=== PATIENT | male | born 1940 | race Caucasian/White ===

== ENCOUNTER → 2017-07-07 13:06 | Outpatient (CLI) | payer MEDICARE, SELFPAY ==
--- NOTE | 2017-07-07 13:09 | RAD_ITS ---
STUDY: X-RAY CHEST REASON FOR EXAM: Male, 77 years old. Crackles in the bilateral lower lobes. TECHNIQUE: 2 views COMPARISON: Prior chest radiograph of January 10, 2017 FINDINGS: Lung lucio remain moderately well expanded without consolidation or focal atelectasis. Negative for advanced interstitial changes. Negative for pleural effusion. Normal size heart. Normal mediastinum and fredrick. Normal visualized pulmonary arteries. There is atherosclerotic calcification of the aortic arch . Normal visualized thoracic spine. Normal visualized ribs, clavicles, and shoulders. There is no demonstrated abnormality of the visualized soft tissue structures of the upper abdomen. RAD/Chest PA and Lateral IMPRESSION: No acute cardiopulmonary findings or changes. Negative for infiltrates, consolidation, atelectasis or pleural effusion. Normal cardiac size without evidence of pulmonary venous congestion. Electronically Signed: Sylvia Navarrete MD at 21:48 EDT , Service support ,
== END ==
PROVIDERS: Family Provider Internal Medicine; PCP Internal Medicine; Visit Provider Internal Medicine
DX: R05 Cough (principal)
CPT/HCPCS: 71046

== ENCOUNTER → 2017-07-20 07:12 | Outpatient (CLI) | payer MEDICARE, SELFPAY ==
--- NOTE | 2017-07-20 07:16 | CT_ITS ---
STUDY: CT CHEST WITH CONTRAST REASON FOR EXAM: Male, 77 years old. Abnormal lung sounds RADIATION DOSAGE (If Supplied By Facility): CTDIvol = ( 13.8 ) mGy, DLP = ( 453.58 ) mGycm TECHNIQUE: Transaxial imaging was performed following intravenous administration of 100 ml of Isovue 300 contrast material. Coronal and sagittal reformatted images were created. Individualized dose optimization techniques were used for this CT. COMPARISON: None FINDINGS: There are no pulmonary infiltrates or pleural effusions. There is atelectasis at the lung bases. There are no significant congestive changes. There is no pneumothorax. The heart and pericardium are within normal limits. There is no thoracic lymphadenopathy. There is no evidence of thoracic aortic aneurysm. Images through the upper abdomen demonstrate no significant abnormality. There are no destructive osseous lesions. CT/Chest WITH Contrast IMPRESSION: Bibasilar atelectasis. Otherwise, clear lungs. Electronically Signed: Vitor Munroe, at 16:54 EDT Tel , Service support ,
[2017-07-20 07:30] LABS: EGFR FINGERSTICK > 60.0000 mL/min (>60)
== END ==
PROVIDERS: Family Provider Internal Medicine; PCP Internal Medicine; Visit Provider Internal Medicine
DX: R09.89 Other specified symptoms and signs involving the circulatory and respiratory systems (principal)
CPT/HCPCS: 71260; Q9967

== ENCOUNTER → 2017-09-12 14:01 | Outpatient (CLI) | payer MEDICARE, SELFPAY ==
[2017-09-12 16:39] LABS: Absolute Neutrophil Count 2.8 X10^3/uL (2.0-7.7); Basophil# 0.04 X10^3/uL; Basophil% 0.8 % (0-1); Eosinophil# 0.16 X10^3/uL; Eosinophils% 3.2 % (0-5); Hematocrit 42.2 % (40-54); Hemoglobin 13.5 g/dl (13.0-16.5); Lymphocyte % 27.9 % (19-41); Mean Corpuscular Hgb 31.2 pg (27.0-32.0); Mean Corpuscular Volume 97.5 fL (80-94); Monocyte# 0.62 X10^3/uL; Monocyte% 12.4 % (0-10); Neutrophil # 2.78 X10^3/uL (2.7-7.7); Neutrophil % 55.5 % (47-70); Platelet Count 139 K/mm3 (150-450); RBC Distribution Width CV 13.9 % (11.6-14.6); RBC Distribution Width SD 50.5 fl (35.1-43.9); Red Blood Count 4.33 M/mm3 (4.6-6.2)
[2017-09-12 16:55] LABS: POSITIVE COUNT NO; POSITIVE DIFFERENTIAL NO; POSITIVE MORPHOLOGY NO
[2017-09-12 17:07] LABS: AST(SGOT) 45 U/L (15-37); Alanine Aminotransfer ALT/SGPT 71 U/L (16-61); Albumin, Serum 3.6 g/dL (3.2-5.0); Alkaline Phosphatase 106 U/L (45-117); Anion Gap 9 (5-15); BUN 30 mg/dL (7-18); BUN/Creat Ratio 22.9 RATIO (10-20); Calcium,Total 8.9 mg/dL (8.5-10.1); Chloride 107 mmol/L (98-107); Creatinine, Serum 1.31 mg/dL (0.70-1.30); EST Glomerular Filtration Rate 56 mL/min (>60); Est Glom Filt Rate - Afr Amer 68 mL/min (>60); Globulin 3.6 g/dL (2.2-4.2); Glucose 92 mg/dL (74-106); Potassium 4.6 mmol/L (3.5-5.1); Protein, Total 7.2 g/dL (6.4-8.2); Sodium Level 143 mmol/L (136-145)
[2017-09-15 16:10] LABS: Immunoglobulin A 558 mg/dL (61-437); Immunoglobulin G 617 mg/dL (700-1600); PROEL- A/G Ratio 1.3 (0.7-1.7); PROEL- Albumin 3.7 g/dL (2.9-4.4); PROEL- Alpha-1 Globulin 0.2 g/dL (0.0-0.4); PROEL- Alpha-2 Globulin 0.7 g/dL (0.4-1.0); PROEL- Beta Globulin 0.7 g/dL (0.7-1.3); PROEL- Gamma Globulin 1.2 g/dL (0.4-1.8); PROEL- Globulin, Total 2.9 g/dL (2.2-3.9); PROEL- TOTAL PROTEIN 6.6 g/dL (6.0-8.5)
[2017-09-16 13:13] LABS: Immunoglobulin M 41 mg/dL (15-143)
== END ==
PROVIDERS: Internal Medicine Medical Oncology; Family Provider Internal Medicine; PCP Internal Medicine; Visit Provider Urology
DX: D47.2 Monoclonal gammopathy (principal)
CPT/HCPCS: 36415; 80053; 82784; 84165; 85025

== ENCOUNTER → 2017-12-22 12:32 | Outpatient (CLI) | payer MEDICARE, SELFPAY ==
--- NOTE | 2017-12-22 12:36 | CT_ITS ---
STUDY: CARDIAC CALCIUM SCORING - CT CHEST REASON FOR EXAM: Male, 77 years old. Cardiac calcium score. RADIATION DOSAGE (If Supplied By Facility): CTDIvol = ( 12.19 ) mGy, DLP = ( 219.42 ) mGycm TECHNIQUE: Axial non-enhanced images were acquired through the heart for the sole purpose of measuring coronary artery calcium. Individualized dose optimization techniques were used for this CT. COMPARISON: CT of the chest dated July 20, 2017. FINDINGS: Visualized surrounding anatomy: There is left basilar dependent atelectasis. The lungs otherwise appear to be clear. The trachea has a normal appearance. The thoracic aorta is tortuous with maximum transverse dimension of the ascending thoracic aorta measuring 3.2 cm. Visualized liver and spleen have a grossly normal appearance. Left Main Coronary Artery: 0 Left Anterior Descending Artery: 151 Left Circumflex Artery: 235 Right Coronary Artery: 1250 Total Calcium Score: 1636. Percentile is between [address]% CT/Limited Chest CT w/CCTA IMPRESSION: A Calcium Score of 1636 places the patient in the approximate 75-90 percentile, based on the HOY[facility] data calculator. Please go to: [email or web address] , for a description of the calculator. Electronically Signed: Belgica Garcia MD at 5:48 EDT , Service support ,
[2017-12-22 12:44] VITALS: BP 131/63; PULSE 53; RESP 14; O2SAT 97; BMI 25.0
--- NOTE | 2017-12-22 20:12 | CA.SCORE ---
Calcium Scoring Date of Study:: 12/22/17 Coronary Calcium Scoring: Coronary calcium score: 1636 Conclusion: Coronary calcium score: 1636 Results: The patient underwent high resolution CT imaging of the chest on 12/22/2017 with particular attention to the coronary arteries. The images were analyzed for the presence and extent of coronary artery calcification using coronary calcium quantification software. The patient was reported as tolerating the procedure well with no adverse events. The coronary calcium score was reported at 1636, which, based upon pre-published reference tables, being a coronary calcium score greater than 400, would be interpreted as having an extensive plaque burden and the high likelihood of at least one significant coronary artery stenosis of greater than 50% in diameter. Impression: Coronary calcium score: 1636 This note was generated with [employer] dictation software. It may contain incorrect words, spelling, and punctuation that were not noted in checking the note before signing.
--- NOTE | 2017-12-22 20:15 | CCTA_ITS ---
Calcium Scoring Date of Study:: 12/22/17 Coronary Calcium Scoring: Coronary calcium score: 1636 Conclusion: Coronary calcium score: 1636 Results: The patient underwent high resolution CT imaging of the chest on 12/22/2017 with particular attention to the coronary arteries. The images were analyzed for the presence and extent of coronary artery calcification using coronary calcium quantification software. The patient was reported as tolerating the procedure well with no adverse events. The coronary calcium score was reported at 1636, which, based upon pre-published reference tables, being a coronary calcium score greater than 400, would be interpreted as having an extensive plaque burden and the high likelihood of at least one significant coronary artery stenosis of greater than 50% in diameter. Impression: Coronary calcium score: 1636 This note was generated with [employer] dictation software. It may contain incorrect words, spelling, and punctuation that were not noted in checking the note before signing.
== END ==
PROVIDERS: Family Provider Internal Medicine; PCP Internal Medicine; Referring Provider Internal Medicine; Visit Provider Internal Medicine
DX: E11.9 Type 2 diabetes mellitus without complications (principal); E78.00 Pure hypercholesterolemia, unspecified; I25.10 Atherosclerotic heart disease of native coronary artery without angina pectoris
CPT/HCPCS: 75571; 76380

== ENCOUNTER → 2018-01-23 05:57 | Outpatient (CLI) | payer MEDICARE, SELFPAY ==
--- NOTE | 2018-01-23 06:00 | ECHOD_ITS ---
Reason For Study: CAD/ASHD Procedure This was a 2D Doppler, Color Flow transthoracic echocardiogram. Exam performed in department. Left Ventricle Normal LV size. Left ventricular systolic function is normal. The estimated ejection fraction is 65 %. Stage 1 diastolic dysfunction. No regional wall motion abnormalities noted. Right Ventricle Normal RV size. Normal systolic function. Atria Normal left atrium. Normal right atrium. Mitral Valve Chordal systolic anterior motion of the mitral valve. Mild (1+) eccentric mitral valve insufficiency. Tricuspid Valve Normal tricuspid valve. Mild (1+) tricuspid valve insufficiency. Pulmonary artery systolic pressure is 24 mmHg. Aortic Valve Normal aortic valve. Trisinus/trileaflet aortic valve. Pulmonic Valve Normal pulmonic valve. Great Vessels Normal aortic root. The pulmonary artery is normal size. Normal inferior vena cava. Pericardium/Pleural No pericardial effusion. Medication 22 gauge I.V. with prn adaptor inserted into right arm. Performed a rapid injection of agitated mix of 9 cc saline and 1cc air to assess for atrial septal defect. MMode/2D Measurements & Calculations LVIDd: 3.6 cm IVSd: 1.1 cm Ao root diam: 3.0 cm LVIDs: 2.1 cm LVPWd: 1.2 cm LA dimension: 3.3 cm RVDd: 3.2 cm FS: 42.0 % LAV(MOD-bp): 33.0 ml LA A4 area: 14.2 cm2 RA A4 area: 12.8 cm2 LAV(MOD-bp) Indexed: 18.6 ml/m2 LAV(MOD-sp2): 32.5 ml LAV(MOD-sp4): 32.6 ml Time Measurements MV dec time: 0.23 sec Doppler Measurements & Calculations MV E max ap: 87.4 cm/sec Lat Peak E' Ap: 11.7 cm/sec Med Peak E' Ap: 8.9 cm/sec MV A max ap: 116.5 cm/sec E/E' lat: 7.5 E/E' med: 9.8 MV E/A: 0.75 MV V2 max: 125.2 cm/sec MV P1/2t max ap: 92.5 cm/sec Ao V2 max: 115.2 cm/sec MV max P.3 mmHg MV P1/2t: 106.9 msec Ao max P.3 mmHg MV V2 mean: 65.0 cm/sec MV dec slope: 253.4 cm/sec2 Ao V2 mean: 73.4 cm/sec MV mean P.0 mmHg MVA(P1/2t): 2.1 cm2 Ao mean P.5 mmHg MV V2 VTI: 32.9 cm Ao V2 VTI: 23.2 cm AI max ap: 364.3 cm/sec LV V1 max: 94.6 cm/sec PA V2 max: 119.4 cm/sec AI max P.1 mmHg LV V1 max P.6 mmHg AI dec slope: 211.8 cm/sec2 LV V1 mean P.5 mmHg AI P1/2t: 503.9 msec LV V1 mean: 56.6 cm/sec LV V1 VTI: 19.7 cm TR max ap: 228.6 cm/sec TR max P.9 mmHg Interpretation Summary Normal LV size. Left ventricular systolic function is normal. The estimated ejection fraction is 65 %. Stage 1 diastolic dysfunction. Mild (1+) eccentric mitral valve insufficiency. Chordal systolic anterior motion of the mitral valve. Mild (1+) tricuspid valve insufficiency. Pulmonary artery systolic pressure is 24 mmHg. Ordering Physician: Wallace James Referring Physician: Misa Almonte M.D. Performed By: Reese Olson RCS
--- NOTE | 2018-01-23 11:42 | STRESSREP_ITS ---
Stress Test Report Exercise myocardial perfusion stress test. 77-year-old man with a history of coronary artery disease. Stress protocol: Resting EKG demonstrates normal sinus rhythm with a rate of 78 beats minute normal intervals and noted resting blood pressure 150/82 mmHg. The patient exercised according to regular [facility] protocol for total duration of 6 minutes and 30 seconds the maximum heart rate attained was 141 bpm which was 99% of maximum predicted heart rate. The maximum workload attained was 7.7 metabolic equivalents. At rest there were no ST or T wave changes noted suggest ischemia peak exercise upsloping ST changes were noted with no meet the criteria for ischemia. No clinical angina was noted the test was terminated due to leg fat igue. The resting blood pressure 150/82 mmHg with a peak blood pressure 184/80 mmHg. Myocardial perfusion protocol. 11.6 mCi of technetium 99m sestamibi was injected at rest. The patient exercised according to regular [facility] protocol for 6-1/2 minutes attaining 99% of maximum predicted heart rate. At peak exercise 33.9 mCi of technetium 99m sestamibi was injected stress images were obtained stress and rest images were reconstructed and compared in the short axis vertical long horizontal long axis. Gated images were also obtained for next Perfusion SPECT analysis: Review of the stress images demonstrate normal uptake of tracer noted in all areas of the myocardium. The resting images similarly demonstrate normal uptake of tracer noted in all areas of the myocardium. No evidence of ischemia is noted no previous infarct is noted. Gated SPECT analysis: The gated ejection fraction is noted to be 70%. Conclusion: Normal exercise myocardial perfusion stress test. Preserved ejection fraction.
== END ==
PROVIDERS: Family Provider Internal Medicine; PCP Internal Medicine; Referring Provider Internal Medicine Cardiovascular Disease; Visit Provider Internal Medicine Cardiovascular Disease
DX: I25.10 Atherosclerotic heart disease of native coronary artery without angina pectoris (principal); I10 Essential (primary) hypertension; R93.1 Abnormal findings on diagnostic imaging of heart and coronary circulation
CPT/HCPCS: 78452; 93017; 93306; A9500; A4216

== ENCOUNTER → 2020-01-01 08:55 | Outpatient (CLI) | payer MEDICARE, SELFPAY ==
[2019-09-19 14:36] VITALS: BMI 26.4
--- NOTE | 2020-01-01 08:58 | BI_ITS ---
MAMMOGRAPHY - BILATERAL DIAGNOSTIC REASON FOR EXAM: Male, 79 years old. Painful right breast following injury. PERTINENT HISTORY: Non-contributory. TECHNIQUE: Digital bilateral breast christina (3D mammographic acquisition) in the CC and MLO projections. 2-D mediolateral oblique (MLO) and craniocaudad (CC) views of both breasts were obtained. CAD: Full Field Digital Mammography with Computer Added Detection was performed. COMPARISON: None. Baseline examination. FINDINGS: Breast Composition: There are scattered areas of fibroglandular density. There are no dominant masses or suspicious calcifications. Asymmetry of breast tissue or more breast tissue is seen in the retroareolar region of the right breast. Correlation with ultrasound is recommended. No other significant abnormalities are identified. BI/DIAG MAMM W/CAD, BILAT IMPRESSION: Asymmetry of breast tissue where more breast tissue is seen in the retroareolar region of the right breast as compared to the left side. Correlation with ultrasound is recommended. ASSESSMENT CATEGORY: BIRADS Category 0: Incomplete. Need additional imaging evaluation. A letter regarding these results will be sent to the patient by the facility within 30 days. Approximately 10% of breast cancers are not detected by mammography. A normal mammogram should not delay biopsy of a clinically suspicious abnormality. Electronically Signed: Yannick Garza, at 10:30 EDT , Service support ,
--- NOTE | 2020-01-01 08:58 | US_ITS ---
STUDY: ULTRASOUND BREAST - RIGHT REASON FOR EXAM: Male, 79 years old. Gynecomastia. TECHNIQUE: Axial and longitudinal images of the RIGHT breast were performed with a high resolution ultrasound transducer. # OF IMAGES: 20 COMPARISON: Comparison is made with prior mammogram done earlier today. FINDINGS: RIGHT Breast: Retroareolar glandular tissue. No solid or cystic mass lesion is seen. US/Breast Limited Unilateral IMPRESSION: Retroglandular tissue. Findings in keeping with gynecomastia. ASSESSMENT CATEGORY: BIRADS Category 2: Benign. A letter regarding these results will be sent to the patient by the facility within 30 days. Electronically Signed: Yannick Garza, at 15:04 EDT , Service support ,
== END ==
PROVIDERS: PCP Internal Medicine; Referring Provider Internal Medicine; Visit Provider Internal Medicine
DX: N63.0 Unspecified lump in unspecified breast (principal); N64.89 Other specified disorders of breast; N62 Hypertrophy of breast
CPT/HCPCS: 76642; 77062; 77066; G0279

== ENCOUNTER → 2020-07-15 10:10 | Outpatient (CLI) | payer MEDICARE, SELFPAY ==
[2020-07-15 07:03] VITALS: BMI 29.6
[2020-07-15 11:57] LABS: BNP,B-Type NATRIURETIC PEPTIDE 14.4 pg/mL (0-100)
== END ==
PROVIDERS: PCP Internal Medicine; Referring Provider Internal Medicine Cardiovascular Disease; Visit Provider Internal Medicine Cardiovascular Disease
DX: R06.02 Shortness of breath (principal)
CPT/HCPCS: 36415; 83880

== ENCOUNTER → 2021-01-07 08:55 | Outpatient (CLI) | payer MEDICARE, SELFPAY ==
--- NOTE | 2021-01-07 08:57 | CDU_ITS ---
Reason For Study: STENOSIS Rt. Velocities/BP Lt. Velocities/BP Prox CCA 98.2/22.6 cm/sec. Prox CCA 118.3/22.5 cm/sec. Mid CCA 93.0/16.0 cm/sec. Mid CCA 101.1/17.6 cm/sec. Dist CCA 77.2/23.4 cm/sec. Dist CCA 88.8/24.9 cm/sec. Prox ICA 102.3/23.7 cm/sec. Prox ICA 91.8/27.0 cm/sec. Mid ICA 120.7/20.0 cm/sec. Mid ICA 99.8/38.4 cm/sec. Dist ICA 76.5/23.7 cm/sec. Dist ICA 104.8/34.8 cm/sec. Rt. ICA/CCA = 1.3. Lt. ICA/CCA = 104.8/101.1=1.0. Prox ECA 95.9/13.5 cm/sec. Prox ECA 177.8/32.6 cm/sec. Rt. Vert. 41.3/13.3 cm/sec. Lt. Vert. 46.9/9.1 cm/sec. Right Extracranial There is intimal thickening but no significant atherosclerotic plaque noted in the right common carotid artery. There is heterogeneous, irregular atherosclerotic plaque noted in the right internal carotid artery. The tortuous nature of the right internal carotid artery may result in flow velocities overestimating the degree of stenosis. There is homogeneous, smooth atherosclerotic plaque noted in the right external carotid artery. Antegrade flow is noted in the right vertebral artery. Left Extracranial There is intimal thickening but no significant atherosclerotic plaque noted in the left common carotid artery. There is heterogeneous, irregular atherosclerotic plaque noted in the left internal carotid artery. There is homogeneous, smooth atherosclerotic plaque noted in the left external carotid artery. Antegrade flow is noted in the left vertebral artery. Procedure Carotid Duplex 52472. This is a Carotid Duplex examination using B-mode, color flow and specral Doppler. Exam performed in department. VL/Carotid Duplex Ultrasound Interpretation Summary Mild (<50%) stenosis right extracranial internal carotid. Mild (<50%) stenosis left extracranial internal carotid. Flow within the vertebral arteries is antegrade bilaterally. Ordering Physician: Misa Almonte Referring Physician: Misa Almonte Performed By: Radha Amos RDCS, RVT
== END ==
PROVIDERS: PCP Internal Medicine; Referring Provider Internal Medicine; Visit Provider Internal Medicine
DX: I65.23 Occlusion and stenosis of bilateral carotid arteries (principal)
CPT/HCPCS: 93880

== ENCOUNTER → 2021-01-26 06:04 | Outpatient (CLI) | payer MEDICARE, SELFPAY ==
--- NOTE | 2021-01-26 11:59 | STRESSREP ---
Stress Test Report Exercise myocardial perfusion stress test. 80-year-old man with a history of coronary disease with shortness of breath. Medications amlodipine, ramipril, lovastatin, furosemide. Stress protocol. Resting EKG demonstrates normal sinus rhythm, with a rate of 75 bpm normal intervals are noted resting blood pressure is 112/62 mmHg. The patient exercised according to regular [facility] protocol for total duration of 9 minutes and 20 seconds. The maximum heart rate attained was 160 bpm which was 115% of maximum predicted heart rate the maximum workload was 11.2 metabolic equivalents. At rest there were no ST or T wave changes noted to suggest ischemia and at peak exercise upsloping ST changes were noted with did not meet the criteria for ischemia. No clinical angina was noted the test was terminated due to target heart rate being achieved. The peak blood pressure was 132/58 mmHg. Myocardial perfusion protocol. 11.6 mCi of technetium 99m sestamibi was injected at rest. Patient was exercised according to regular [facility] protocol for 9 minutes and 20 seconds and at peak exercise 33.3 mCi of technetium 99m sestamibi was injected stress images were obtained stress and rest images were reconstructed and compared in the short axis vertical long horizontal long axis. Gated images were also obtained Perfusion SPECT analysis: Review of the stress images demonstrate small to medium sized defect noted in the mid inferior wall. The septum anterior wall and lateral wall appear to be well perfused on the stress images and normally perfused on the resting images. The above is suggestive of mid inferior ischemia of a moderate size. Gated SPECT analysis: The gated ejection fraction is 78%. Conclusion: Abnormal exercise myocardial perfusion stress test with mid inferior ischemia. Preserved ejection fraction. Good functional capacity.
== END ==
PROVIDERS: PCP Internal Medicine; Referring Provider Internal Medicine; Visit Provider Internal Medicine
DX: I25.10 Atherosclerotic heart disease of native coronary artery without angina pectoris (principal)
CPT/HCPCS: 78452; 93017; A9500; A4216

== ENCOUNTER 2021-01-30 06:31 | Day surgery (SDC) | payer MEDICARE, SELFPAY ==
--- NOTE | 2021-01-27 16:14 | RAD_ITS ---
INDICATION: sob EXAMINATION/TECHNIQUE: X-RAY - XR Chest 2 Views COMPARISON: 07/07/2017. FINDINGS: The lungs are clear. Bibasilar atelectasis. The cardiomediastinal silhouette is unremarkable. No pleural effusion or pneumothorax. Degenerative changes of the thoracic spine. RAD/Chest PA and Lateral IMPRESSION: No acute radiographic abnormalities. Electronically Signed: Darion Brennan MD at 16:55 EST Tel , Service support ,
[2021-01-27 16:51] LABS: Absolute Lymphocyte Count 1.93 X10^3/uL (0.83-4.51); Absolute Neutrophil Count 4.4 X10^3/uL (2.0-7.7); Basophil# 0.06 X10^3/uL; Basophil% 0.8 % (0-1); Eosinophil# 0.18 X10^3/uL; Eosinophils% 2.4 % (0-5); Hematocrit 45.2 % (40-54); Hemoglobin 14.5 g/dL (13.0-16.5); Lymphocyte # 1.93 X10^3/ul (0.83-4.51); Mean Corp Hgb Conc 32.1 g/dL (32-36); Mean Corpuscular Hgb 31.2 pg (27.0-32.0); Mean Corpuscular Volume 97.2 fL (80-94); Mean Platelet Vol. 10.1 fl (6.2-12.0); Monocyte# 0.81 X10^3/uL; Monocyte% 10.9 % (0-10); NRBC Flagged by Analyzer 0 % (0-5); Neutrophil # 4.41 X10^3/uL (2.7-7.7); Neutrophil % 59.5 % (47-70); Platelet Count 143 K/mm3 (150-450); RBC Distribution Width CV 13.8 % (11.6-14.6); RBC Distribution Width SD 49.6 fl (35.1-43.9); Red Blood Count 4.65 M/mm3 (4.6-6.2); White Blood Count 7.4 K/mm3 (4.4-11.0)
[2021-01-27 17:14] LABS: Anion Gap 5 (5-15); BUN 33 mg/dL (7-18); BUN/Creat Ratio 17.1 RATIO (10-20); Calcium,Total 9.4 mg/dL (8.5-10.1); Chloride 102 mmol/L (98-107); Creatinine, Serum 1.93 mg/dL (0.70-1.30); EST Glomerular Filtration Rate 36 mL/min (>60); Est Glom Filt Rate - Afr Amer 43 mL/min (>60); Glucose 117 mg/dL (74-106); Potassium 4.3 mmol/L (3.5-5.1); Sodium Level 136 mmol/L (136-145)
[2021-01-29 07:52] VITALS: BMI 29.6
[2021-01-30 07:27] LABS: Anion Gap 6 (5-15); BUN 22 mg/dL (7-18); BUN/Creat Ratio 16.4 RATIO (10-20); Calcium,Total 9.1 mg/dL (8.5-10.1); Chloride 108 mmol/L (98-107); Creatinine, Serum 1.34 mg/dL (0.70-1.30); EST Glomerular Filtration Rate 54 mL/min (>60); Est Glom Filt Rate - Afr Amer 66 mL/min (>60); Estimated Creatinine Clearance 33.39 ml/min; Glucose 118 mg/dL (74-106); Potassium 3.9 mmol/L (3.5-5.1); Sodium Level 140 mmol/L (136-145)
--- NOTE | 2021-01-30 08:55 | CL.D_ITS ---
Patient Name: RODRIGO LEO Study Date: 01/30/2021 Performing: Wallace James MD Ht: 61.81 inches 157 cm : 1940 Wt: 160.94 lbs 73 kg Age: 80 Gender: male BSA: 1.74 PROCEDURE(S) PERFORMED [id number], SINGLE CORONARY ARTERY CLINICAL PROFILE AND INDICATIONS Indications: Suspected CAD Heart Failure: None Stress/Imaging Date: 01/26/2021 CAD Presentations: Unstable angina. CONCLUSIONS Severe single-vessel disease involving the right coronary artery in the proximal and mid segments wit h high-grade stenosis noted. RECOMMENDATIONS Referred for immediate PCI DESCRIPTION OF PROCEDURE The patient arrived to the procedure lab. The risks and benefits of the procedure as well as a full d escription of our services here and current unavailability of surgical backup were fully explained to the patient and/or their significant other prior to the catheterization. The Timeout was completed, verifying the correct patient and procedure. The patient's procedural site was prepped and draped in the usual fashion. Local anesthetic was given subcutaneously to right radial region with Lidocaine 2% . Using a modified Seldinger technique, arterial access was obtained via the right radial artery, a 6 Fr sheath was inserted. Right Coronary Artery selective angiography was then performed in multiple v iews using a 5 Fr. 4.0 [place] catheter. Left Coronary Artery selective angiography was performed in mu ltiple views using a 5 Fr. 4.0 [place] catheter. CORONARY ANGIOGRAPHY DOMINANCE: Right Dominant LEFT HEART ASSESSMENT Left Ventricular Ejection Fraction: by Echo 60 % Normal LV wall motion Normal Left Ventricular systolic function LEFT MAIN: Angiographically normal LEFT ANTERIOR DESCENDING ARTERY: Mild luminal irregularities DIAGONAL 1: Proximal - 50 % Stenosis CIRCUMFLEX ARTERY: Mild luminal irregularities RIGHT CORONARY ARTERY: PROX RCA: Proximal eccentric calcified 95% stenotic lesion in mid 80% stenotic lesion. Distal minima l disease. COMPLICATIONS PROCEDURE MEDICATIONS Versed 1 mg IV Fentanyl 50 mcg IV Versed 1 mg IV Oxygen: 2 L/min via nasal cannula Brilinta 180 mg PO @ 01/30/2021 08:46:52 Heparin given IA 01/30/2021 08:34:23 Verapamil 2.5mg, Ntg 100mcgs, 3000 units of Heparin given IA 01/30/2021 08:34:23 IV Fluids: .9 NaCl IV started @ 100 ml/hr 01/30/2021 07:16:58 SUMMARY OF HEMODYNAMIC DATA Time AIR REST ECG 07:08:10 AO 92/53 (71) SA 08:36:08 AO 87/52 (69) 08:41:42 Signed By Wallace James MD On 01/30/2021 8:54:56 AM Wallace James MD
--- NOTE | 2021-01-30 10:41 | CL.I_ITS ---
Patient Name: RODRIGO LEO Study Date: 01/30/2021 Performing: Samuel Lai MD Ht: 61.81 inches 157 cm : 1940 Wt: 160.94 lbs 73 kg Age: 80 Gender: male BSA: 1.74 PROCEDURE(S) PERFORMED [id number], SINGLE CORONARY ARTERY CLINICAL PROFILE AND CO-MORBIDITIES Indications: Suspected CAD Heart Failure: None Stress/Imaging Date: 01/26/2021 CAD Presentations: Unstable angina. CONCLUSIONS Unsuccessful PCI of the RCA RECOMMENDATIONS Treatment options for the RCA will include medical therapy versus rotablation. CABG could also be con sidered if clinically indicated. DESCRIPTION OF PROCEDURE The patient arrived to the procedure lab. The risks and benefits of the procedure as well as a full d escription of our services here and current unavailability of surgical backup were fully explained to the patient and/or their significant other prior to the catheterization. The Timeout was completed, verifying the correct patient and procedure. The patient's procedural site was prepped and draped in the usual fashion. Local anesthetic was given subcutaneously to right radial region with Lidocaine 2% Using a modified Seldinger technique,arterial access was obtained via the right radial artery, a 6Fr sheath was inserted. Right Coronary Artery selective angiography was then performed in multiple view s using a 5 Fr. 4.0 Ace catheter. Left Coronary Artery selective angiography was performed in multi ple views using a 5 Fr. 4.0 Ace catheter. JR4 Guide catheter was inserted and engaged into the RCA. BMW Guide wire was advanced to the RCA. Emerge 1.50x8 Balloon catheter was inserted. Emerge 1.50x8 Balloon catheter was inserted. PTCA ballo on inflated at 10 atms for 8 secs. Angiogram performed post balloon dilatation. Emerge 2.50x12 Balloo n catheter was inserted. PTCA balloon inflated at 6 atms for 30 secs. PTCA balloon inflated at 6 atms for 8 secs. The arterial sheath was pulled and a TR Band was applied for hemostasis w12ml air INTERVENTION INFORMATION LESION SITE: RCA (Mid) Lesion Complexity: High/C, chronic total occlusion: No, lesion at bifurcation: No, thrombus present: No, lesion length: 12 mm, culprit lesion: Yes, Previously treated lesion: No Pre Stenosis: 99 % Pre intervention HERNAN flow: 3 PROCEDURE: Balloon Angioplasty The lesion was heavily calcified. There was also significant proximal tortuosity. The wire would no t even enter the distal RCA without support from the balloon and guide liner. The balloon did not cr oss the lesion initially. We had to carefully advance the guide liner close to the lesion and still a balloon did not cross. We then had to advance the guide catheter over the guide liner to provide m ore support and finally were able to cross the lesion with the 1.5 x 8 mm balloon. The balloon was i nflated to 6 to 10 nickolas. The balloon burst. Proximal part of the RCA had significant narrowing that was either due to spasm or dissection. We went in with 2.5 x 12 mm balloon and inflated it in the pr oximal RCA to 6 nickolas. After that there was excellent angiographic result in the proximal RCA with no evidence of dissection suggestive of more likely spasm in this location due to manipulation with the guide liner and guide rather than dissection.. At this point it was clear that to fix this lesion percutaneously the patient would need rotablation. This would probably be high risk because o f proximal tortuosity. Alternate approaches include just medical therapy. These options will be dis cussed with the patient, family and patient's primary mushroom grower, Dr. James. Post Stenosis: 99 % Post intervention HERNAN flow: 3 Lesion Devices: Cardinal 6 Fr JR4 100cm Guide Catheter Perez .014 BMW Clune Straight 190cm Ramon Sci EMERGE MR 1.50x08 [employer] 6 [place] GuideLiner Ramon Sci EMERGE MR 2.50x12 BALLOON COMPLICATIONS No Complications PROCEDURE MEDICATIONS Versed 1 mg IV Fentanyl 50 mcg IV Versed 1 mg IV Oxygen: 2 L/min via nasal cannula Brilinta 180 mg PO @ 01/30/2021 08:46:52 Heparin given IA 01/30/2021 08:34:23 Heparin 6000 unit(s) IV 01/30/2021 09:30:19 Verapamil 2.5mg, Ntg 100mcgs, 3000 units of Heparin given IA 01/30/2021 08:34:23 IV Bolus: .9 NaCl 600 ml total 01/30/2021 10:05:25 IV Fluids: .9 NaCl IV started @ 100 ml/hr 01/30/2021 07:16:58 SUMMARY OF HEMODYNAMIC DATA Time AIR REST ECG 07:08:10 AO 92/53 (71) SA 08:36:08 AO 87/52 (69) 08:41:42 Signed By Samuel Lai MD On 01/30/2021 10:40:57 Samuel Lai MD
--- NOTE | 2021-01-30 13:16 | CRPHASE1_ITS ---
Patient Communication PHII Cardiac Rehab Discussed with Patient:: Yes Guide to Cardiac Rehab Given to Patient:: Yes Cardiac Rehab Facility Choice List Given to Patient:: Yes Choice Program [facility] CR PHII:: Communication Given to CR Medical Physics Professor:: Delmy Lai Refer Phase II Cardiac Rehab:: Yes Sessions:: 36 sessions - 3 days/wk, 12 weeks - pt may go to [place] for the winter s/p rotoblation at [place] Cardiac Rehabilitation Info Cardiac Rehabilitation Program Information: Cardiac Rehabilitation is important for patients like you who are recovering from a heart problem. Cardiac rehabilitation programs are recognized as integral to the continued care of the patient with coronary heart disease. The cardiac rehabilitation program is designed to optimize a patient's physical, psychological, and social functioning. Health career technical education instructor work in cardiac rehabilitation programs and assist you with getting the treatments you need to get stronger and healthier - like exercise, healthy eating habits, and medications. Cardiac rehabilitation has been show to help people with heart problems live longer and have better life enjoyment than people who do not go to cardiac rehabilitation. Please contact the Cardiac Rehabilitation Program at [facility] at in two weeks if you have not heard from them.
--- NOTE | 2021-01-30 13:20 | CRPH1.INST_ITS ---
General Education CAD and cardiac anatomy and function:: Patient communicates acknowledgment Explanation of diagnoses and procedures:: Patient communicates acknowledgment Sign/Symptoms of HI:: Patient communicates acknowledgment Antiplatelet therapy: Patient communicates acknowledgment Smoking Patient Nicotine/Smoking Risk Factors Are:: Never smoked Dyslipidemia Patient Dyslipidemia Risk Factors Are:: Total Cholesterol, Triglycerides, HDL, LDL Recommendations Include:: Lipid profile not available, Reviewed NCEP/ATP guidelines, Therapeutic Lifestyle Change dietary guidelines Dyslipidemia Response Code:: Patient communicates acknowledgment Overweight/Obesity Patient Overweight/Obesity Risk Factors Are:: Overweight = 26-29 Recommendations Include:: Weight loss of 5-10%, Reduced calorie diet, Exercise 5-7 times/week Overweight/Obesity:: Patient communicates acknowledgment Hypertension Recommendations Include:: Maintain BP <130/85, DASH dietary guidelines, Decrease/maintain normal body weight, Moderation of ETOH Hypertension:: Patient communicates acknowledgment Diabetes Patient Diabetes Risk Factors Are:: Elevated blood sugars, Post-op hyperglycemia Recommendations Include:: Maintain fasting blood sugars 70-110 md/dL, Maintain HgbA1c of 6% or less, Monitor blood sugar as prescribed, Diabetic dietary guide lines, Decrease/maintain body weight Diabetes:: Patient communicates acknowledgment Stress Recommendations Include:: Identification of stressors, and assessment of coping skills, Stress management techniques Stress Response Code:: Patient communicates acknowledgment
== END 2021-01-30 15:30 | disposition short-term general hospital (02) ==
PROVIDERS: PCP Internal Medicine; Referring Provider Internal Medicine Cardiovascular Disease; Visit Provider Internal Medicine Cardiovascular Disease
DX: I25.110 Atherosclerotic heart disease of native coronary artery with unstable angina pectoris (principal); R94.39 Abnormal result of other cardiovascular function study; R93.1 Abnormal findings on diagnostic imaging of heart and coronary circulation; R06.09 Other forms of dyspnea; I10 Essential (primary) hypertension; E78.5 Hyperlipidemia, unspecified; Z79.82 Long term (current) use of aspirin; Z79.899 Other long term (current) drug therapy; Z82.49 Family history of ischemic heart disease and other diseases of the circulatory system
CPT/HCPCS: 36415; 71046; 80048; 85025; 87426; 92920; 93454; 99152; 99153; J7040; Q9967; C1725; C1769; C1887; C1894

== ENCOUNTER → 2021-02-09 09:15 | Outpatient (CLI) | payer MEDICARE, SELFPAY ==
[2021-02-09 10:11] LABS: Anion Gap 6 (5-15); BUN 21 mg/dL (7-18); BUN/Creat Ratio 14.8 RATIO (10-20); Calcium,Total 9.1 mg/dL (8.5-10.1); Chloride 105 mmol/L (98-107); Creatinine, Serum 1.42 mg/dL (0.70-1.30); EST Glomerular Filtration Rate 51 mL/min (>60); Est Glom Filt Rate - Afr Amer 61 mL/min (>60); Glucose 142 mg/dL (74-106); Potassium 3.9 mmol/L (3.5-5.1); Sodium Level 139 mmol/L (136-145)
== END ==
PROVIDERS: PCP Internal Medicine
DX: Z13.89 Encounter for screening for other disorder (principal)
CPT/HCPCS: 36415; 80048

== ENCOUNTER → 2021-07-16 | Outpatient (CLI) | payer MEDICARE, SELFPAY ==
[2021-07-16 11:01] LABS: BNP,B-Type NATRIURETIC PEPTIDE 43.9 pg/mL (0-100)
== END | disposition home or self-care (01) ==
PROVIDERS: PCP Internal Medicine; Visit Provider Internal Medicine Cardiovascular Disease
DX: R06.00 Dyspnea, unspecified (principal)
CPT/HCPCS: 36415; 83880

== ENCOUNTER → 2021-11-04 | Outpatient (CLI) | payer MEDICARE, SELFPAY ==
--- NOTE | 2021-11-04 09:23 | US_ITS ---
STUDY: ABDOMINAL ULTRASOUND - RIGHT UPPER QUADRANT REASON FOR VISIT: Male, 81 years old ELEVATED LIVER ENZYMES TECHNIQUE: Ultrasound evaluation of the right upper quadrant was performed with real-time and static fisher-scale imaging. TECHNICAL QUALITY: Limited. Examination limited by bowel gas. COMPARISON: None. FINDINGS: Liver: The liver measures 13.1 cm. There is a heterogeneous echogenicity of the liver. The bile ducts are within normal limits. There is hepatic color flow. The direction of portal flow is hepatopetal. There is no demonstrated mass lesion. Gallbladder: Normal distended gallbladder. The gallbladder wall measures 2.5 mm. There is a negative sonographic Rivera''s sign. There is no pericholecystic fluid. There are no gallstones. Common Bile Duct (C.B.D.): The common bile duct measures 2.8 mm. Pancreas: Normal size of the head, body and tail of the pancreas. There is normal echogenicity of the pancreas. There is no demonstrated pancreatic mass or cyst. Right Kidney: Normal size of the right kidney. The right kidney measures 9.2 cm x 5.7 cm x 5.1 cm. Normal renal cortex. The right cortex measures 1.4 cm. There is a 1.4 cm x 1.3 cm x 0.8 cm right renal cyst. There is no right hydronephrosis. US/Liver IMPRESSION: Heterogeneous echotexture of the liver. Small right renal cyst. Electronically Signed: Yannick Garza MD at 12:28 EDT ,
== END | disposition home or self-care (01) ==
LOC: US 09:20
PROVIDERS: PCP Internal Medicine; Referring Provider Internal Medicine; Visit Provider Internal Medicine
DX: K76.89 Other specified diseases of liver (principal); N28.1 Cyst of kidney, acquired; R74.8 Abnormal levels of other serum enzymes
CPT/HCPCS: 76705

== ENCOUNTER → 2022-06-29 | Outpatient (CLI) | payer MEDICARE, SELFPAY ==
--- NOTE | 2022-06-29 14:15 | US_ITS ---
INDICATION: Renal cyst, right EXAMINATION: Ultrasound US Kidney(s) complete (eg, kidneys and bladder) TECHNIQUE: Montiel scale and color doppler images were obtained of the kidneys. COMPARISON: Report of ultrasound dated 11/04/2021, images not available. FINDINGS: RIGHT KIDNEY: 8.9 x 5.1 x 5.0 cm. There is no hydronephrosis. No redemonstration of right renal cyst. LEFT KIDNEY: 10.0 x 5.1 x 4.7 cm. There is no hydronephrosis. No shadowing calculus, focal lesion or perinephric collection is demonstrated. URINARY BLADDER: No wall abnormality. Prostate enlarged of 46 cc volume with heterogenous echotexture. US/Kidney and Bladder IMPRESSION: No hydronephrosis. No redemonstration of right renal cyst. Electronically Signed: Matteo Crawley MD at 21:18 EDT ,
== END | disposition home or self-care (01) ==
PROVIDERS: PCP Internal Medicine; Referring Provider Internal Medicine; Visit Provider Internal Medicine
DX: N28.1 Cyst of kidney, acquired (principal)
CPT/HCPCS: 76770

== ENCOUNTER → 2023-02-02 | Outpatient (CLI) | payer MEDICARE, SELFPAY ==
--- NOTE | 2023-02-02 08:48 | US_ITS ---
EXAM: US ABDOMEN LIMITED, RIGHT UPPER QUADRANT CLINICAL INDICATION: ELEVATED LFTS TECHNIQUE: Real-time ultrasound of the right upper quadrant with image documentation. COMPARISON: No relevant prior studies available. FINDINGS: LIVER: The liver measures 11.8 cm in length. There is normal echotexture. No intrahepatic biliary ductal dilation. GALLBLADDER: Gallbladder wall measures 2 mm. No shadowing gallstone. No pericholecystic fluid. Negative sonographic Rivera''s sign. COMMON BILE DUCT: Common bile duct measures 2 mm. The proximal common bile duct is within normal limits for the patient''s age. PANCREAS: Unremarkable as visualized. No focal abnormality is demonstrated in the pancreas. No pancreatic ductal dilatation. RIGHT KIDNEY: The right kidney measures 9.1 x 4.8 x 4.7 cm. The right renal cortex measures 1.4 cm. There is no hydronephrosis. No shadowing calculus. No focal lesion or perinephric collection is demonstrated. FREE FLUID: There is free fluid in the right upper quadrant compatible with ascites. US/Liver IMPRESSION: Free fluid in the upper abdomen compatible with ascites. No other acute abnormalities are identified. Electronically Signed: Nickolas Davila MD at 23:33 EST ,
== END | disposition home or self-care (01) ==
PROVIDERS: PCP Internal Medicine; Referring Provider Internal Medicine; Visit Provider Internal Medicine
DX: R79.89 Other specified abnormal findings of blood chemistry (principal)
CPT/HCPCS: 76705

== ENCOUNTER → 2023-02-15 | Outpatient (CLI) | payer MEDICARE, SELFPAY ==
--- NOTE | 2023-02-15 14:08 | CT_ITS ---
STUDY: CT ABDOMEN AND PELVIS WITH CONTRAST REASON FOR EXAM: Male, 83 years old. Ascites. RADIATION DOSAGE (If Supplied By Facility): CTDIvol = ( 9.69 ) mGy, DLP = ( 669.61 ) mGycm TECHNIQUE: Transaxial images were obtained from the dome of the diaphragm to the symphysis pubis with oral contrast. Oral and amp; IV Readi-CAT and amp; 100mL Isovue-300 was administered. Sagittal and coronal images were reconstructed. Individualized dose optimization techniques were used for this CT. COMPARISON: Comparison is made with prior sonogram of the abdomen dated February 02, 2023. FINDINGS: The visualized lung bases are unremarkable. Coronary artery calcification. Diffuse ascites. Normal liver. Normal gallbladder and extrahepatic biliary system. Normal spleen. Normal pancreas. Normal bilateral adrenal glands. Normal right kidney. Normal left kidney. Normal visualized stomach. Normal small intestine. There are scattered colonic diverticula consistent with diverticulosis. The appendix is visualized and appears normal. There is diffuse atherosclerotic calcification of the abdominal aorta, without a demonstrated aneurysm. Normal inferior vena cava. Normal retroperitoneum. Normal urinary bladder. Prostatic enlargement with indentation at the bladder base. Left hydrocele. There are mild degenerative changes of the visualized lumbar spine. Schmorl''s node of the superior plate of the L4 vertebrae. CT/Abdomen/Pelvis WITH Contrast IMPRESSION: Diffuse ascites. Electronically Signed: Yannick Garza MD at 14:46 EST ,
[2023-02-15 14:38] LABS: CREATININE FINGERSTICK < 1.0 mg/dL (0.70-1.30); EGFR FINGERSTICK > 60.0000 mL/min (>60)
== END | disposition home or self-care (01) ==
LOC: CT 14:06
PROVIDERS: PCP Internal Medicine; Referring Provider Internal Medicine; Visit Provider Internal Medicine
DX: R18.8 Other ascites (principal)
CPT/HCPCS: 74177; Q9967

== ENCOUNTER → 2023-02-16 | Outpatient (CLI) | payer MEDICARE, SELFPAY ==
[2023-02-16 12:29] LABS: International Normalized Ratio 1.2; Prothrombin Time (Protime)PT. 15.2 SECONDS (11.7-14.9)
[2023-02-16 13:19] LABS: AST(SGOT) 59 U/L (15-37); Alanine Aminotransfer ALT/SGPT 87 U/L (16-61); Albumin, Serum 2.2 g/dL (3.2-5.0); Alkaline Phosphatase 238 U/L (45-117); Bilirubin, Direct 0.21 mg/dL (0.00-0.30); GGTP 159 U/L (15-85); Globulin 5.2 g/dL (2.2-4.2); Protein, Total 7.4 g/dL (6.4-8.2)
[2023-02-17 05:07] LABS: Alpha Antitrypsin Serum 197 mg/dL (101-187)
== END | disposition home or self-care (01) ==
LOC: MTLAB 09:57
PROVIDERS: PCP Internal Medicine; Referring Provider Internal Medicine Gastroenterology; Visit Provider Internal Medicine Gastroenterology
DX: B17.9 Acute viral hepatitis, unspecified (principal)
CPT/HCPCS: 36415; 80076; 82103; 82977; 85610

== ENCOUNTER → 2023-02-24 | Outpatient (CLI) | payer MEDICARE, SELFPAY ==
[2023-02-24 08:10] VITALS: BP 141/73; PULSE 73; RESP 16; TEMP 36.6; O2SAT 97
[2023-02-24] MEDS: Lidocaine 2% (20 ml mdv) 20 ML Vial INFILT (08:16)
--- NOTE | 2023-02-24 08:31 | PRO.PCM_ITS ---
Procedure Report Date of Procedure: 02/24/23 Assessment & Plan Assessment/Plan (1) Ascites: QUALIFIERS: Ascites type: other type Qualified Code(s): R18.8 - Other ascites PLAN: PROCEDURE: Ultrasound guided paracentesis ORDERING PROVIDER: Dr. Misa Almonte INDICATION: Male, 83 years old. Diffuse ascites on recent imaging. PROVIDER: VALERIA Dodge TECHNIQUE: The risks, benefits, and alternatives to the procedure were explained to the patient. The specific risks of bleeding, infection, and damage to bowel were detailed and accepted. Witnessed informed consent was obtained. The abdomen was ultrasonographically surveyed. A collection of fluid was noted in the right lower quadrant, with trace fluid in the other quadrants. Patient had held his Plavix for this procedure and was ordered diagnostics on the fluid. And then the patient did not report discomfort from the ascites, he was agreeable to attempting the drainage for diagnostic purposes. The skin was prepped with ChloraPrep and sterile field established. 2% lidocaine was used for local anesthetic. Using ultrasound guidance, the peritoneal cavity was accessed with a 5-Romanian paracentesis needle/catheter system. The trocar was removed. Despite ultrasound guidance into this pocket, no fluid was able to be drained by manual aspiration. The catheter was removed and a sterile dressing was applied. The procedure was well tolerated. IMPRESSION: Attempted ultrasound-guided paracentesis with right lower quadrant access site. Procedures Radiology Radiology US Procedures: 20583 Paracentesis
== END | disposition home or self-care (01) ==
LOC: US 07:32
PROVIDERS: PCP Internal Medicine; Referring Provider Internal Medicine; Visit Provider Internal Medicine
DX: R18.8 Other ascites (principal)
CPT/HCPCS: 49083

== ENCOUNTER → 2023-04-07 | Outpatient (CLI) | payer MEDICARE, SELFPAY ==
--- NOTE | 2023-04-07 07:46 | CT_ITS ---
INDICATION: ascites and Left groin pain EXAMINATION: CT ABDOMEN AND PELVIS WITHOUT CONTRAST - CT Abdomen And Pelvis W/O Contrast Injection TECHNIQUE: Helically acquired images were obtained of the abdomen and pelvis without oral or IV contrast. A radiation dose optimization technique was used for this scan. IV Contrast dosage and agent: None. Oral contrast: None. RADIATION DOSAGE (If Supplied By Facility): CTDIvol = ( 7.24 ) mGy, DLP = ( 407.08 ) mGycm COMPARISON: Prior study dated: 2522 FINDINGS: LOWER CHEST: Essentially unremarkable. No cardiomegaly or pericardial effusion. Coronary calcifications. LIVER: Calcified granuloma in the inferior aspect of the liver. No focal lesion is seen without contrast. GALLBLADDER AND BILIARY TREE: No calcified gallstones. No intra- or extrahepatic biliary ductal dilation. PANCREAS: No focal cystic or solid mass. SPLEEN: Normal size without focal cystic or solid mass. ADRENAL GLANDS: No nodules. KIDNEYS AND URETERS: Normal renal size and position. No hydronephrosis. PERITONEUM: Mild to moderate amount of ascites unchanged. No other fluid collection. BOWEL: No evidence of acute appendicitis. No stomach or bowel distension. No focal inflammatory change. LYMPH NODES: No enlarged mesenteric or retroperitoneal lymph nodes. VESSELS: Atherosclerotic calcifications of the abdominal aorta without evidence of aneurysm. URINARY BLADDER: Mild thickening of the bladder wall could be due to underdistention. REPRODUCTIVE ORGANS: Enlarged prostate. Correlation with PSA level is recommended. ABDOMINAL WALL: Small left inguinal hernia containing fluid. BONES: No lytic or blastic abnormality. Unchanged. CT/Abdomen/Pel W ORAL Cont Only IMPRESSION: 1. Ascites unchanged since prior exam. 2. No focal acute inflammatory process. 3. Prominent prostate. 4. Small left inguinal hernia containing fluid. Electronically Signed: Sharan Good MD at 8:52 EST ,
== END | disposition home or self-care (01) ==
LOC: CT 07:45
PROVIDERS: PCP Internal Medicine; Referring Provider Surgery; Visit Provider Surgery
DX: R18.8 Other ascites (principal); R10.32 Left lower quadrant pain
CPT/HCPCS: 74176

== ENCOUNTER → 2023-04-26 | Outpatient (CLI) | payer MEDICARE, SELFPAY ==
[2023-04-26] VITALS (15 sets, daily range): BP systolic 93–137; BP diastolic 57–82; PULSE 59–72; RESP 13–23; TEMP 36.6; O2SAT 94–99; BMI 25.0
--- NOTE | 2023-04-26 | LIVB_PTH ---
PATHOLOGY RESULTS PATIENT: RODRIGO LEO LOC: CT U#:[id number] AGE/SX: 83/M ROOM: RE04/26/[address]: Dr. Dionicio Delatorre MD : 1940 BED: DIS: 04/26/2023 SPEC #: [id number] RECD: 04/26/23 11:12 STATUS: MADELYN RECarol Ann #: [id number] VIRA: 04/26/23 00:[address]: Dionicio Delatorre DEPT: SURGICAL PATHOLOGY RECD BY: Renita Barfield ENTERED: 04/26/23 11:12 SP TYPE: LIVER BX OTHR DR: MD Ericka Villar, GERIATRICIAN-C Tissues: Liver, NOS Procedures: PAS with Diastase (control) Trichrome (control) Special Stain Group II PAS Stain (control) Surgery Specimen Level V Retic (control) Iron Stain (control) HEADER OPERATION: CT-guided liver biopsy PRE-OP DIAGNOSIS: Fatty liver disease TISSUE SUBMITTED: Liver 18-gauge x3 MICROSCOPIC DIAGNOSIS Liver, CT-guided core biopsy: Liver parenchymal tissue with focal bridging fibrosis and focal changes suspicious for early cirrhosis. See microscopic description and comment. SJ:richie 04/27/2023 COMMENT Correlation with clinical, radiology findings, laboratory findings and appropriate follow up are necessary. Case has been reviewed in consultation with Dr. Renee who concurs with the above diagnosis. IDC:AM MICROSCOPIC DESCRIPTION Slides are reviewed. The specimen shows liver parenchymal tissue with focally preserved lobular architecture. Hepatocytes show minimal reactive changes. Significant macro- or microvesicular steatosis is not seen. Lobules also show dilated sinusoids. Mild significant lobular inflammation is not seen. Portal area shows mild chronic inflammation. Iron stain shows absent iron. Trichrome and reticulin stains highlights mild increase of portal and periportal fibrosis and focal bridging fibrosis. The findings are suspicious for early cirrhosis. PAS stain with and without diastase do not show any abnormal accumulation of proteins. All stains are performed with appropriate matched controls. GROSS DESCRIPTION Received is one container labeled with the patient's name and not further designated. The specimen consists of multiple irregular and elongated fragments of luis tissue that in aggregate measure 1.7 x 0.2 x <0.1 cm. The specimen is totally submitted in one cassette. / AM:richie 04/26/2023 TC:5 CPT: 90985, 64510 x5
[2023-04-26 07:55] LABS: Platelet Count 126 K/mm3 (150-450)
[2023-04-26 08:52] LABS: Partial Thromboplast Time 31.4 Seconds (24.1-36.2)
[2023-04-26 09:01] LABS: International Normalized Ratio 1.1; Prothrombin Time (Protime)PT. 14.6 SECONDS (11.7-14.9)
[2023-04-26] MEDS: 0.9% Normal Saline (250mL Bag) 250 ML 15 ML IV (10:04)
[2023-04-26] MEDS: Midazolam 2 MG/2 ML Syringe IV (10:04)
[2023-04-26] MEDS: fentaNYL 100 MCG/2 ML Ampul IV (10:07)
[2023-04-26] MEDS: Lidocaine 2% (20 ml mdv) 20 ML Vial INFILT (10:21)
--- NOTE | 2023-04-26 11:27 | PCM.OP.PRO ---
Procedure Report Date of Procedure: 04/26/23 Assessment & Plan Assessment/Plan (1) Fatty (change of) liver, not elsewhere classified: PLAN: PROCEDURE: CT DIRECTED CORE LIVER BIOPSY ORDERING PROVIDER: Dr. Delatorre INDICATION: Male, 83 years old. Fatty liver. PROVIDER: VALERIA Dodge CONSENT: Written informed consent was obtained having explained the risks, benefits and alternatives in detail with the patient who accepted the risks and agreed to proceed. Laboratory review and clinical assessment was performed. PRE-PROCEDURE SEDATION ASSESSMENT: Current history and physical dictated by referring provider and reviewed. No clinical changes since date of exam. Patient has an ASA Class of 2. PROCEDURAL SEDATION PROTOCOL: The Drugs used were: 2 mg Versed, IV, and 50 mcg Fentanyl, IV. The sedation time was: 21 minutes, starting at 1004 and terminated at 1025. The procedural sedation protocol was independently monitored by the department nurse. RADIATION DOSAGE (If Supplied By Facility): CTDIvol = 18.32 mGy, DLP = 417.29 mGycm Individualized dose optimization techniques were used for this CT. TECHNIQUE: The patient was placed in a supine position. Using CT image guidance with image documentation, a suitable location in the left lobe of the liver was identified. The skin surface was prepped with betadine and draped in a sterile fashion. 2% lidocaine was used for local anesthesia. Using an anterior approach, puncture of the liver was uneventful with an 18-gauge core needle system. 3, 18-gauge core samples were obtained, and submitted in formalin to the pathologist for further assessment. The needle was removed. An occlusive sterile dressing was applied. Patient tolerated the procedure well, and returned to the [facility] for nursing monitoring. IMPRESSION: 1. CT directed core needle biopsy of the liver, using CT image guidance with image documentation as described. 2. Procedural Sedation protocol utilized with independent monitoring. Procedures Radiology Radiology CT Procedures: 50989 Biopsy Liver
== END | disposition home or self-care (01) ==
LOC: CT 07:42
PROVIDERS: Nurse Practitioner Acute Care; PCP Internal Medicine; Referring Provider Internal Medicine Gastroenterology; Visit Provider Internal Medicine Gastroenterology
DX: K76.0 Fatty (change of) liver, not elsewhere classified (principal); R18.8 Other ascites; R63.4 Abnormal weight loss; Z68.25 Body mass index [BMI] 25.0-25.9, adult
CPT/HCPCS: 47000; 36415; 77012; 85049; 85610; 85730; 88307; 88313; 99156; J7050; A4216

== ENCOUNTER → 2023-07-04 | Outpatient (CLI) | payer MEDICARE, SELFPAY ==
--- NOTE | 2023-07-04 07:11 | US_ITS ---
EXAM: US Abdomen Limited (quadrant) HISTORY: acites survey COMPARISON: None FINDINGS: Limited four-quadrant evaluation of the abdomen shows moderate ascites in the right lower quadrant, likely was not estimated by the wire winder. US/Abdomen Limited IMPRESSION: Right lower quadrant ascites Electronically Signed: Camacho Stewart MD at 9:22 EDT ,
== END | disposition home or self-care (01) ==
LOC: US 07:11
PROVIDERS: PCP Internal Medicine; Referring Provider Internal Medicine; Visit Provider Internal Medicine
DX: R18.8 Other ascites (principal)
CPT/HCPCS: 76705

== ENCOUNTER → 2023-07-27 | Outpatient (CLI) | payer MEDICARE, SELFPAY ==
--- NOTE | 2023-07-27 12:44 | CT_ITS ---
HISTORY: abnormal cxr. TECHNIQUE: Helically acquired images were obtained of the chest without contrast. A radiation dose optimization technique was used for this scan. 804 images. COMPARISON: XR 07/12/2023. FINDINGS: LARGE AIRWAYS: Patent. LUNGS: Small calcified left upper lobe granuloma. Very mild reticular scarring in the lung bases. No acute alveolar consolidation. PLEURA: No pneumothorax or significant pleural effusion. HEART/PERICARDIUM: Heart within normal limits in size with coronary artery calcification. No pericardial effusion. VESSELS: Thoracic aorta nondilated. Mild atherosclerosis. MEDIASTINUM/GUILLE: Small mediastinal lymph nodes without pathologic enlargement. UPPER ABDOMEN: Moderate ascites with mesenteric edema and varices. Slightly nodular liver. Small right upper quadrant calcification. CHEST WALL: Degenerative changes of the osseous changes. Chronic mild T7, T11, and T12 compression fractures. Bilateral gynecomastia. CT/Chest without Contrast IMPRESSION: Moderate ascites with cirrhosis and varices. No evidence for acute abnormality in the chest. Electronically Signed: Suki Allison MD at 13:28 EDT ,
== END | disposition home or self-care (01) ==
LOC: CT 12:43
PROVIDERS: PCP Internal Medicine; Referring Provider Internal Medicine; Visit Provider Internal Medicine
DX: R93.89 Abnormal findings on diagnostic imaging of other specified body structures (principal)
CPT/HCPCS: 71250

== ENCOUNTER → 2023-10-13 | Outpatient (CLI) | payer MEDICARE, SELFPAY | END | disposition home or self-care (01) | PROVIDERS: PCP Internal Medicine; Referring Provider Internal Medicine Medical Oncology; Visit Provider Internal Medicine Medical Oncology | DX: D64.9 Anemia, unspecified (principal) | CPT/HCPCS: 82274 ==

== ENCOUNTER → 2023-10-19 | Outpatient (CLI) | payer MEDICARE, SELFPAY ==
[2023-10-19] VITALS (14 sets, daily range): BP systolic 82–120; BP diastolic 47–94; PULSE 66–72; RESP 12–24; TEMP 36.4; O2SAT 92–100; BMI 25.7
--- NOTE | 2023-10-19 | IMM_PTH ---
PATIENT: RODRIGO LEO LOC: CT U#:[id number] AGE/SX: 83/M ROOM: RE10/19/[address]: Dr. Alfredito Vazquez MD : 1940 BED: DIS: 10/19/2023 SPEC #: [id number] RECD: 10/20/23 10:13 STATUS: MADELYN REQ #: [id number] VIRA: 10/19/23 00:[address]: Alfredito Vazquez DEPT: IMMUNOHISTOCHEMISTRY RECD BY: Jonny Sanford ENTERED: 10/20/23 10:14 SP TYPE: IMMUNO OTHR DR: Dr. Misa Almonte MD Tissues: A - Bone marrow of iliac crest B - Bone marrow of iliac crest Procedures: CD138 (add) CD20 (add) CD3 (add) CD34 (add) CD45 (add) CD5 (add) CD79A (add) KAPPA (add) LAMBDA (add) CD3 (initial) CD5 (initial) PHYSICIAN [facility] INSTITUTION [address] [address] SPECIMEN INFORMATION: Tissue Source: A- Bone marrow core, B- Bone marrow clot Clinical Info: Hypergammaglobulinemia Specimen Number: [id number] CPT code: [id number] METHODOLOGY: Deparaffinized sections of prefer/formalin-fixed tissue or PAP/DQ stained slides are incubated with monoclonal/polyclonal antibodies/oligonucleotide probes. Localization is made via biotin free immunoperoxidase method. Appropriate controls are performed and reacted as expected. Results on target cell population are indicated in the following table: RESULTS: ANTIBODY / CLONE RESULT Block A CD3 (PS1) positive CD5 (SP10) positive CD20 (L26) positive CD45 (RP2/18) positive CD79a (11E3) positive CD138 (B-A38) positive [place] (polyclonal) positive Lambda (polyclonal) negative CD34 (QBEnd-10) negative Block B CD3 (PS1) positive CD5 (SP10) positive CD20 (L26) positive CD45 (RP2/18) positive CD79a (11E3) positive CD138 (B-A38) positive [place] (polyclonal) positive Lambda (polyclonal) negative CD34 (QBEnd-10) negative These tests were developed and their performance characteristics determined by [facility]. They may not have been cleared or approved by the U.S. Food and Drug Administration. The FDA has determined that such clearance or approval is not necessary. The above immunohistochemical/dualISH markers are ordered and reviewed by the Pathologist. INTERPRETATION: A. 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 Increased number of blasts is not seen. Interstitial lymphocytes are noted, polytypic in nature, favor benign. B. 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 Increased number of blasts is not seen. Interstitial lymphocytes are noted, polytypic in nature, favor benign. This case was reviewed with Dr. Renee who concurs with the above diagnosis. SJ/mr 10/24/2023
--- NOTE | 2023-10-19 | BMB_PTH ---
PATIENT: RODRIGO LEO LOC: CT U#:[id number] AGE/SX: 83/M ROOM: RE10/19/[address]: Dr. Alfredito Vazquez MD : 1940 BED: DIS: 10/19/2023 SPEC #: [id number] RECD: 10/19/23 10:36 STATUS: MADELYN DANIELCarol Ann #: [id number] VIRA: 10/19/23 00:[address]: Alfredito Vazquez DEPT: BONE MARROW RECD BY: Gumaro Prescott ENTERED: 10/19/23 11:09 SP TYPE: BMB NACHO DR: Dr. Misa Almonte MD Tissues: A - Bone marrow, NOS B - Bone marrow, NOS C - Bone marrow, NOS Procedures: Decalcification bone/plaque Bone Marrow Aspiration Bone Marrow Core Biopsy Iron Stain Bone Marrow HEADER OPERATION: CT guided bone marrow biopsy and aspirate PRE-OP DIAGNOSIS: Hypergammaglobulinemia TISSUE SUBMITTED: A - Core, B - Clot, C - Smears, and send outs (flow, cytogenetics) BONE MARROW DIAGNOSIS Bone marrow core, clot and aspirate smears: Plasmacytosis (~10%) with [place] monoclonality, consistent plasma cell dyscrasia. See comment. JOÃO/ 10/24/2023 COMMENT A, B. Immunohistochemistry ([id number]) supports the above diagnosis. Flow cytometric study from [facility] show a monotypic plasma cell population with cytoplasmic kappa light chain expression, representing 1% of the total cell analyzed. A CD5, CD10, and CD103 are negative monoclonal B lymphocyte population is also detected with kappa light chain restriction representing 2% of total cells analyzed and 75% of B lymphocytes. A comment is also made that a typical phenotype for chronic lymphocytic leukemia/small lymphocytic lymphoma, mantle cell lymphoma, hairy cell leukemia or follicular center cell leukemia or lymphoma is not detected. In the absence of B-cell lymphoma, small clonal B-cell population in the blood are classified as monoclonal B-cell lymphocytosis. The finding can be seen in the setting of plasma cell neoplasm. The complete report is viewable in the patient's EMR. Cytogenetic and FISH studies are pending. Please make reference to previous specimen [id number] bone marrow biopsy, core, clot, aspirate smear with diagnosis of plasma cytosis (23%, 16% mature and 7% immature) suggestive of multiple myeloma. Correlation with clinical findings and appropriate follow up are necessary. Case has been reviewed in consultation with Dr. Renee who concurs with the above diagnosis. IDC:[email or web address] BONE MARROW STUDY Slides are reviewed. CBC DATE: 10/19/23 WBC 4.5; RBC 3.51; HGB 11.0; HCT 35.0; MCV 99.7; RDW 15.9; PLTS 154,000 SEGS 55.4%; LYMPHS 21.51%; MONOS 14.1%; EOS 7.2%; BASOS 1.6% PERIPHERAL SMEAR: Submitted. RBC: Mild macrocytic anemia WBC: Mild monocytosis. The WBC count is compatible to as reported above. PLTS: Adequate. BONE MARROW ASPIRATE DIFFERENTIAL: Not performed. ASPIRATE FINDINGS: Site: Not specified Aspicular, Acellular Comment: Markedly hemodiluted specimen. Rare hematopoietic cells are noted. All submitted smears are examined. CORE BIOPSY FINDINGS: Site: Not specified Adequacy: Adequate Cellularity: 30-50% M/E ratio: Within normal limits. Megakaryocytes: Present and adequate in number. Bony trabeculae: Unremarkable. Granulomas: Absent. Lymphoid aggregate: Absent. Atypical infiltrate: Present Comment: Immunohistochemistry ([id number]) shows increased number of plasma cells, about 10%, with kappa monoclonality, consistent with involvement by plasma cell dyscrasia. Interstitial lymphocytes are noted, polytypic in nature, favor benign. Increased number of blasts is not seen. ASPIRATE CLOT FINDINGS: Site: Not specified Marrow particles: Numerous Cellularity: 40% M/E ratio: Within normal limits. Megakaryocytes: Present and adequate in number. Granulomas: Absent. Lymphoid aggregates: Absent. Atypical infiltrates: Present. Comment: Immunohistochemistry ([id number]) shows increased number of plasma cells, about 10%, with kappa monoclonality, consistent with involvement by plasma cell dyscrasia. Interstitial lymphocytes are noted, polytypic in nature, favor benign. Increased number of blasts is not seen. SPECIAL STAINS WITH MATCHED CONTROLS: Iron: Absent Reticulin: No significant increase of reticulin fibers is noted. PAS: Highlights myeloid cells and megakaryocytes. BONE MARROW GROSS A - Received is a container labeled with the patient's name and designated Bone marrow core. The specimen consists of a piece of luis bone mixed with blood clots measuring in aggregate 1.5 x 0.3 x 0.1cm. The specimen is totally submitted in one cassette after decalcification. B - Received labeled with the patient's name and designated Bone marrow clot is a specimen that consists of approximately 3.0ml of bloody fluid that on filtration yields multiple minute fragments of blood clots measuring in aggregate 2.0 x 1.0 x 0.1 cm. The specimen is totally submitted in one cassette. C - Also received are 12 unstained and 1 peripheral stained slides. The unstained slides are submitted for appropriate staining. Also received are 2 green top tubes which are sent to our reference lab for FLOW, CYTOGENETICS. SJ/mr 10/19/2023 TC:5 CPT: 88506, 56856, 93471 x2, 56515 x3, 29736 ADDENDUM ADDENDUM ADDENDUM ADDENDUM ADDENDUM ADDENDUM ADDENDUM ADDENDUM 10/28/2023 08:55 ADDENDUM 10/28/2023 08:55 ADDENDUM 10/28/2023 08:55 ADDENDUM 10/28/2023 08:55 ADDENDUM 10/28/2023 08:55 [facility]: 46,XY (20) INTERPRETATION: Normal male karyotype was observed in twenty metaphases analyzed. Please see complete report in e-chart or EMR
[2023-10-19 09:16] LABS: Absolute Lymphocyte Count 0.96 X10^3/uL (0.83-4.51); Absolute Neutrophil Count 2.5 X10^3/uL (2.0-7.7); Basophil# 0.07 X10^3/uL; Basophil% 1.6 % (0-1); Eosinophil# 0.32 X10^3/uL; Eosinophils% 7.2 % (0-5); Lymphocyte # 0.96 X10^3/ul (0.83-4.51); Lymphocyte % 21.5 % (19-41); Mean Corp Hgb Conc 31.4 g/dL (32-36); Mean Corpuscular Hgb 31.3 pg (27.0-32.0); Mean Corpuscular Volume 99.7 fL (80-94); Mean Platelet Vol. 10.2 fl (6.2-12.0); Monocyte# 0.63 X10^3/uL; Monocyte% 14.1 % (0-10); NRBC Flagged by Analyzer 0 % (0-5); Neutrophil # 2.48 X10^3/uL (2.7-7.7); Neutrophil % 55.4 % (47-70); Platelet Count 154 K/mm3 (150-450); RBC Distribution Width CV 15.9 % (11.6-14.6); RBC Distribution Width SD 57.4 fl (35.1-43.9); RET-HE 35.4 pg (30-35); Red Blood Count 3.51 M/mm3 (4.6-6.2); Reticulocyte Count 2.11 % (0.5-1.5); White Blood Count 4.5 K/mm3 (4.4-11.0)
[2023-10-19 09:20] LABS: Erythrocyte Sedimentation Rate 32 mm/hr (0-20)
[2023-10-19 09:23] LABS: International Normalized Ratio 1.1; Prothrombin Time (Protime)PT. 14.6 SECONDS (11.7-14.9)
[2023-10-19 09:24] LABS: Partial Thromboplast Time 28.8 Seconds (24.1-36.2)
[2023-10-19 09:44] LABS: ALB/GLOB Ratio 0.5 RATIO (0.9-2.4); AST(SGOT) 53 U/L (15-37); Alanine Aminotransfer ALT/SGPT 50 U/L (16-61); Albumin, Serum 2.5 g/dL (3.2-5.0); Alkaline Phosphatase 193 U/L (45-117); Anion Gap 4 (5-15); BUN 32 mg/dL (7-18); BUN/Creat Ratio 21.1 RATIO (10-20); Chloride 112 mmol/L (98-107); Creatinine, Serum 1.52 mg/dL (0.70-1.30); EST Glomerular Filtration Rate 47 mL/min (>60); Est Glom Filt Rate - Afr Amer 56 mL/min (>60); Ferritin 168 ng/mL (26-388); Globulin 5.3 g/dL (2.2-4.2); Glucose 108 mg/dL (74-106); Iron 63 ug/dL (65-175); Iron Binding Capacity,Total 231 ug/dL (250-450); LDH 157 U/L (87-241); PERCENT IRON SATURATION 27.3 % (15.0-55.0); Potassium 4.4 mmol/L (3.5-5.1); Protein, Total 7.8 g/dL (6.4-8.2); Sodium Level 140 mmol/L (136-145)
[2023-10-19] MEDS: 0.9% Normal Saline (250mL Bag) 250 ML 15 ML IV (10:08)
[2023-10-19 10:09] LABS: Vitamin B12 631 pg/mL (211-911)
[2023-10-19] MEDS: Midazolam 2 MG/2 ML Syringe IV (10:10)
[2023-10-19] MEDS: fentaNYL 100 MCG/2 ML Ampul IV (10:12)
[2023-10-19] MEDS: Lidocaine 2% (20 ml mdv) 20 ML Vial INFILT (10:22)
--- NOTE | 2023-10-19 11:42 | PCM.OP.PRO ---
Procedure Report Date of Procedure: 10/19/23 Assessment & Plan Assessment/Plan (1) Hypergammaglobulinemia: PLAN: PROCEDURE: CT guided bone marrow biopsy and aspiration of the right iliac bone ORDERING PROVIDER: Dr. Vazquez INDICATION: Male, 83 years old. Hypergammaglobulinemia. PROVIDER: Ericka Garcia APRN-LAB TECHNOLOGIST RADIATION DOSAGE (If Supplied By Facility): CTDIvol = 18.16 mGy, DLP = 235.50 mGycm. Individualized dose optimization techniques were utilized. CONSENT: The risks, benefits, and alternatives to the procedure were explained to the patient. The specific risk of hemorrhage requiring further treatment or intervention was detailed and accepted. Follow-up instructions were discussed with the patient and as well. Written informed consent was obtained. PRE-PROCEDURE SEDATION ASSESSMENT: Current history and physical dictated by referring physician and reviewed. No clinical changes since date of exam. Patient has a Mallampati Score of Class 1 and ASA Class of 3. PROCEDURAL SEDATION PROTOCOL: The Drugs used were: 2 mg Versed, IV, and 50 mcg Fentanyl, IV. The sedation time was: 13 minutes, starting at 1010 and terminated at 1033. The procedural sedation protocol was independently monitored by the department nurse. TECHNIQUE The patient was brought into the CT suite and placed in the prone position. An appropriate entry site was identified. The overlying skin was prepped and draped in the usual sterile fashion. 2% lidocaine was administered subcutaneously for local anesthesia. Under CT guidance, a bone marrow biopsy and bone marrow aspirate were performed of the right iliac bone using an 11-gauge bone marrow biopsy kit. Hematology staff was present to prepare the specimen slides and transport the specimen to the laboratory for analysis. Hemostasis was obtained, and a sterile occlusive dressing was applied. The patient tolerated the procedure well without immediate complications. IMPRESSION: Successful CT guided bone marrow biopsy and aspiration of the right iliac bone as described. Procedural Sedation protocol utilized with independent monitoring by the department nurse. Procedures Radiology Radiology CT Procedures: 04126 Dx bone marrow bx & aspir Multi Select Codes Radiology Radiology CT Procedures: 82662-00 CT guidance parenchymal tissue
[2023-10-28 13:28] LABS: Miscellaneous Lab Procedure SEE PATHOLOGY REPORT; Miscellaneous Lab Procedure 2 SEE PATHOLOGY REPORT
== END | disposition home or self-care (01) ==
PROVIDERS: PCP Internal Medicine; Referring Provider Internal Medicine Medical Oncology; Visit Provider Internal Medicine Medical Oncology
DX: D72.822 Plasmacytosis (principal); D47.2 Monoclonal gammopathy; D64.9 Anemia, unspecified; I25.10 Atherosclerotic heart disease of native coronary artery without angina pectoris; I10 Essential (primary) hypertension; Z95.5 Presence of coronary angioplasty implant and graft; Z79.01 Long term (current) use of anticoagulants; Z79.02 Long term (current) use of antithrombotics/antiplatelets; Z79.82 Long term (current) use of aspirin; Z79.899 Other long term (current) drug therapy
CPT/HCPCS: 38222; 36415; 77012; 80053; 82607; 82728; 82746; 83540; 83550; 83615; 85025; 85045; 85610; 85652; 85730; 86140; 88305; 88311; 88313; 88341; 88342; 99156; J7050; A4216

== ENCOUNTER → 2023-11-17 | Outpatient (CLI) | payer MEDICARE, SELFPAY ==
--- NOTE | 2023-11-17 08:55 | RAD_ITS ---
STUDY: X-RAY BONE SURVEY COMPLETE REASON FOR EXAM: Male, 83 years old. SMOLDERING MYELOMA TECHNIQUE: Single PA view of the chest. One view of the pelvis was obtained. 2 views of the cervical spine were obtained. 2 views of the thoracic spine were obtained. 2 views of the lumbar spine were obtained. 1 views of the femur. One views of the humerus. : 2 views of the skull were obtained. COMPARISON: None. FINDINGS: CHEST: The lungs are clear and expanded. There is no demonstrated pleural abnormality. Normal size heart. Normal mediastinum and fredrick. Normal visualized pulmonary arteries. Normal visualized aortic arch and descending thoracic aorta. Normal visualized thoracic spine. Normal visualized ribs, clavicles, and shoulders. There is no demonstrated abnormality of the visualized soft tissue structures of the upper abdomen. PELVIS: There is a non-specific bowel gas pattern. Normal visualized soft tissue structures. Normal bilateral iliac wings, sacroiliac joints and visualized sacrum. Normal visualized bilateral superior and inferior pubic rami. Normal pubic symphysis. Normal ischial tuberosities. Normal visualized right femoral head. Normal right acetabulum. Normal right hip joint. Normal visualized left femoral head. Normal left acetabulum. Normal left hip joint. CERVICAL SPINE: Normal anterior atlantoaxial articulation. Normal odontoid process. Normal cervical lordosis. Normal vertebral bodies and endplates. Normal disc space heights. Normal visualized intervertebral neuroforamina. The soft tissue structures are unremarkable. THORACIC SPINE: Normal kyphosis of the thoracic spine. Mild levoscoliosis of the thoracic lumbar spine. There is multilevel endplate spondylosis of the thoracic vertebrae. There is multilevel disc space narrowing of the thoracic spine. The soft tissue structures are unremarkable. LUMBAR SPINE: Normal lumbar lordosis. Mild levoscoliosis of lower lumbar spine. 10 mm of anterolisthesis of L4 and L5. There is multilevel endplate spondylosis of the lumbar vertebrae. There is multi-level degenerative disc disease with multi-level disc space narrowing. There is multilevel facet hypertrophy. The soft tissue structures are unremarkable. RIGHT FEMUR: Normal visualized femur. Normal visualized soft tissue structure. LEFT FEMUR: Normal visualized femur. Normal visualized soft tissue structure. RIGHT HUMERUS :Normal visualized humerus. There is no demonstrated fracture or osseous destructive process. There is no demonstrated soft tissue abnormality. LEFT HUMERUS:Normal visualized humerus. There is no demonstrated fracture or osseous destructive process. There is no demonstrated soft tissue abnormality. SKULL: There is no demonstrated soft tissue swelling. Normal osseous calvarium. Normal visualized facial bones. Normal visualized paranasal sinuses. RAD/Bone Survey Comp(Axial&Append) IMPRESSION: No radiographic evidence of multiple myeloma or plasmacytoma. Electronically Signed: Edson Marina MD at 10:42 EDT ,
== END | disposition home or self-care (01) ==
PROVIDERS: PCP Internal Medicine; Visit Provider Internal Medicine Medical Oncology
DX: D47.2 Monoclonal gammopathy (principal)
CPT/HCPCS: 77075

== ENCOUNTER → 2023-12-29 | Outpatient (CLI) | payer MEDICARE, SELFPAY ==
--- NOTE | 2023-12-29 16:29 | US_ITS ---
EXAM: US SCROTUM CLINICAL INDICATION: ULTRASOUND OF SCROTUM AND CONTENTS ?ascites fluid, ? hydorcele, -- Scrotal swelling TECHNIQUE: Realtime ultrasound of the testicles was performed with grayscale and Color Doppler analysis. COMPARISON: No relevant prior studies available. FINDINGS: RIGHT TESTICLE: No significant abnormality. Normal in size and echotexture. No focal lesion. Normal blood flow is present. The right testicle measures 3.6 x 2.2 x 2.2 cm. LEFT TESTICLE: No significant abnormality. Normal in size and echotexture. No focal lesion. Normal blood flow is present. The left testicle measures 3.0 x 2.7 x 1.8 cm. EPIDIDYMIDES: No significant abnormality. Normal in size and echotexture, without focal lesion. Normal color Doppler flow pattern in the epididymis. SCROTUM: 9.0 x 5.9 x 4.5 cm cystic lesion along the left spermatic cord distinct from the hydrocele. Small left hydrocele. US/Testicular with Arterial Flow IMPRESSION: 1. 9.0 x 5.9 x 4.5 cm cystic lesion along the left spermatic cord distinct from the hydrocele. This may be a hydrocele of the cord or other cystic lesion of the cord. Consider inguinal hernia filled with ascites. A follow-up CT may be necessary. 2. Small left hydrocele. 3. No intratesticular abnormality is identified. Electronically Signed: Jaxon Grewal DO at 20:23 EDT ,
== END | disposition home or self-care (01) ==
LOC: US 16:28
PROVIDERS: PCP Internal Medicine; Referring Provider Internal Medicine; Visit Provider Internal Medicine
DX: N50.89 Other specified disorders of the male genital organs (principal)
CPT/HCPCS: 76870; 93976

== ENCOUNTER 2024-03-08 18:30 | Inpatient (IN) | payer MEDICARE, SELFPAY ==
[2024-03-08 18:31] VITALS: BP 124/62; PULSE 73; RESP 15; TEMP 36.5; O2SAT 99; BMI 24.6
[2024-03-08 18:33] VITALS: O2SAT 96
--- NOTE | 2024-03-08 19:13 | ED.VIS.FALL ---
HPI HPI - Fall History of Present Illness Chief Complaint: Fall Informant: patient and family (x2) Narrative Narrative: 84-year-old male had an unwitnessed fall in his bathroom at home [facility]. The bathroom is carpeted, family states it look like he hit the top of his head on the corner of a wall near the toilet. He also had a bloody nose transiently. No other injuries. He said balance issues, states it is not uncommon for him to fall getting off of the toilet or other seated position, and they suspect that is probably what has happened. He is on clopidogrel no anticoagulants. He has been diagnosed with metabolic encephalopathy for the past couple months, it is progressively getting worse, he recently had urinalysis that was negative for infection and some other blood test, his doctor was trying to document a CT of the head that was unremarkable but insurance did not cover it as an outpatient 1 or 2 weeks ago. He has MGUS. He is having more debility. As a result, he was moving into [facility], and was going to be on hospice as well starting [facility] prior to this. Family had been at [place] setting up his new apartment, and they came back and found him in the bathroom awake and with blood all over him from his scalp injury. [facility] Medical History Left groin pain Atherosclerotic heart disease of [place] coronary artery without angina pectoris Type 2 diabetes mellitus Hyperlipidemia Essential tremor SNHL (sensorineural hearing loss) Anxiety Erectile dysfunction Abnormal cardiac CT angiography Essential (primary) hypertension MGUS (monoclonal gammopathy of unknown significance) Leukopenia Thrombocytopenia Home Medications ?Medication ?Instructions ?Recorded ?Last Taken ?Type aspirin 81 mg tablet,delayed 81 mg PO DAILY 09/19/19 01/30/21 History release metoprolol tartrate 25 mg tablet 12.5 mg PO BID 07/16/21 Unknown History clopidogrel 75 mg tablet 75 mg PO DAILY #90 tabs 09/03/22 10/12/23 Rx levothyroxine 50 mcg tablet 50 mcg PO DAILY 04/04/23 Unknown History cholecalciferol (vitamin D3) 50 4,000 unit PO DAILY 08/19/23 Unknown History mcg (2,000 unit) capsule losartan 50 mg tablet 50 mg PO QDAY 08/19/23 Unknown History polysaccharide iron complex 150 mg 150 mg PO DAILY 90 days #90 caps 10/27/23 Unknown Rx iron capsule (Ferrex) citalopram 10 mg tablet 5 mg PO DAILY 03/08/24 Unknown History furosemide 20 mg tablet 20 mg PO DAILY 03/08/24 Unknown History lactulose 10 gram/15 mL oral 15 ml PO TID 03/08/24 Unknown History solution (Constulose) Allergy/AdvReac Type Severity Reaction Status Date / Time No Known Allergies Allergy Verified 12/01/23 10:05 Family History Mother Alzheimer disease Father Myocardial infarction [place] in his 30's Brother CAD (coronary artery disease) CABG Other Sudden cardiac Surgical History History of liver biopsy History of coronary artery stent placement (02/02/21) History of left heart catheterization (01/30/21) History of hemorrhoidectomy History of cataract extraction Social History Smoking Status: Never smoker alcohol intake: current alcohol intake frequency: holidays/special occasions only substance use type: does not use caffeine: Yes Type: coffee Number of servings: 1 ROS ROS ED Review of Systems ROS Unobtainable: due to encephalopathy Constitutional Constitutional ED: Denies chills or fever(s) Eyes Eyes: Denies change in vision ENT ENT ED: Reports epistaxis; Denies ear pain or sore throat Cardiovascular Cardiovascular: Denies chest pain or palpitations Respiratory/Chest Respiratory/Chest: Denies cough or dyspnea Gastrointestinal Gastrointestinal: Denies abdominal pain, nausea or vomiting Musculoskeletal Musculoskeletal: Denies back pain, extremity pain or neck pain Integumentary Reports laceration; Denies abscess or rash Neurologic Neurologic: Reports as per HPI and confusion; Denies headache(s), paresthesias or weakness EXAM Physical Exam Const Vital Signs: 03/08/24 18:31 03/08/24 18:33 03/08/24 20:30 Temperature 97.7 F L Temperature Source Oral Pulse Rate 73 75 Respiratory Rate 15 19 H Respiratory Effort Normal Non-Labored Respiratory Depth Normal Respiratory Pattern Normal Blood Pressure 124/62 H 124/69 H Blood Pressure Mean 82 87 Pulse Ox 99 96 97 Oxygen Delivery Method Room Air Room Air Room Air 12/26/24 20:44 Temperature 98.2 F Temperature Source Pulse Rate 77 Respiratory Rate 16 Respiratory Effort Respiratory Depth Respiratory Pattern Blood Pressure 124/69 H Blood Pressure Mean 87 Pulse Ox 100 Oxygen Delivery Method Positive well nourished and well developed General Appearance ED: well developed and NAD HEENT Reports moist mucous membranes HEENT Narrative: Scalp laceration 1.5 cm on top of his head, there is minor oozing from it, there is no crepitance or depression or large boggy hematoma. No Ayala sign, raccoon eyes, CSF otorhinorrhea. No hemotympanum. He does have evidence of recent epistaxis but there is no active bleeding. There is blood in both nares. He has some ecchymosis at the nasal bridge, but there is no deformity and it is nontender, no crepitance. There is no other facial tenderness including the maxillae and the midface, the zygomatic arches, superior orbital brim's. normocephalic and trauma Eyes PERRL and EOMs intact bilaterally Neck full ROM and supple General: Negative for tenderness Chest Wall inspection of chest normal and palpation of chest normal Resp normal respiratory effort and clear to auscultation bilaterally Resp Narrative: No splinting with deep inspiration Cardio regular rate, regular rhythm and no murmurs GI non-tender and non-distended Auscultation: normoactive bowel sounds Palpation: soft Back/Spine no CVA tenderness Back/Spine Narrative: Significant subacute-appearing ecchymosis in the low back, worse on the right and up into the lower ribs of the right. There is no reproducible tenderness. This is all from prior falls remotely according to family. They stated is continuing to look better. General Back: other FROM Thoracic Spine / Upper Back: Negative for pain with ROM Extremity normal to inspection General Extremety ED: Negative for edema, pulses abnormal or tenderness General Extremity: Negative for edema or pulses abnormal Neuro CN's II-XII intact bilaterally and no sensory deficits noted Neuro Narrative: Confused, but answers questions appropriately for ROS with regards to current symptoms, and at baseline according to family Sensorium / Orientation: awake and alert Motor Exam: strength 5/5 throughout Skin no rashes or lesions noted and no wounds MDM MDM MDM Narrative Medical decision making narrative: Patient laceration was repaired see the procedure note, this was uneventful, we sent him for CT, I reviewed the images and the report which I agree with the has a subdural hematoma in the left posterior falx and tentorium and possibly a small amount of subarachnoid hemorrhage as well. I discussed at length with the and daughter. Plan was to take him to assisted living tonight, and initiate hospice after the weekend, they have not spoken with hospice yet but still intend to. The family does not want to take him home tonight, as they are uncomfortable. They ask if we can keep him here. They agree that they do not want to escalate care even if this worsens. I discussed with neurosurgery Dr. Christianson at [facility], I sent in the images and he was able to visualize them, he states this is typically a lower chance of complication-type intracranial hemorrhage, he agrees with discontinuing the clopidogrel and recommends a repeat scan in 6 hours as well as levetiracetam 1 g twice daily for the next month for seizure prophylaxis. Otherwise he agrees with the plan of disposition. Lab Data Attestation: I reviewed the patient's lab results. Labs: Laboratory Results - last 24 hr 03/08/24 20:34 WBC 4.5 RBC 2.89 L Hgb 8.9 L Hct 28.0 L MCV 96.9 H MCH 30.8 MCHC 31.8 L RDW Std Deviation 66.5 H RDW Coeff of Brit 18.6 H Plt Count 114 L MPV 9.4 Immature Gran % (Auto) 0.400 Neut % (Auto) 68.1 Lymph % (Auto) 14.1 L [place] % (Auto) 11.9 H Eos % (Auto) 4.6 Baso % (Auto) 0.9 Absolute Neuts (auto) 3.1 Absolute Lymphs (auto) 0.64 L Nucleated RBC % 0 Sodium 139 Potassium 3.7 Chloride 108 H Carbon Dioxide 26.0 Anion Gap 6 BUN 28 H Creatinine 1.04 Estim Creat Clear Calc 43.48 Est GFR (MDRD) Af Amer 87 Est GFR (MDRD) Non-Af 72 BUN/Creatinine Ratio 26.9 H Glucose 127 H Hemoglobin A1c 5.0 Calcium 9.2 Folate 5.10 TSH 4.320 H Radiography Diagnostic Testing: Clinical Impression(s) from Imaging Studies Brain CT 03/08/24 19:22 IMPRESSION: 5 mm thick subdural hematoma in the midline left posterior falx and left tentorium. There is also likely some subarachnoid hemorrhage. Chronic involutional and ischemic changes of the brain. Electronically Signed: Darion Brennan MD at 19:48 EST , Management Discussion w/another healthcare provider: Hospitalist, Kindergarten Prep Teacher (CARLOS A Christianson) and PCP (Regarding recent medical history and outpatient testing) Procedures Lacerations scalp: Length: 1.5 cm Depth: Sub Q (no galea involvement) Shape: Linear Prep: Sterile Conditions and Chlorhexadine (scrubbed) Laceration repair: Lidocaine with epi (topical LET), Local and Skin sutures (cristian) Number of Sutures/[place]: 3 Comment: thea'd well, no complications Critical Care Time Critical Care Time: Yes Critical care time (excluding procedures): 30-74 minutes (32 min), Including time spent:, Discussing w/Patient &/or Family/Electrical Engineering Draftsperson, Discussing w/Consultants, Arranging Admission or Transfer and Performing Direct Patient Care at Bedside Discharge Plan Triage Chief Complaint: Fall ED Provider: Dimas Miller Dx/Rx/DC Orders Clinical Impression: Traumatic subdural hematoma (SDH), MGUS (monoclonal gammopathy of unknown significance), Thrombocytopenia, Traumatic subarachnoid hemorrhage, Metabolic encephalopathy Primary Care Provider: Misa Almonte
--- NOTE | 2024-03-08 19:22 | CT_ITS ---
ACR Level 3 findings have been noted. An addendum which confirms receipt of the report will follow. EXAMINATION : Head CT w/out contrast HISTORY : fall/injury COMPARISON : None. TECHNIQUE : Multiple contiguous axial images were obtained from the skull base to the vertex without intravenous contrast. A radiation dose optimization technique was used for this scan. FINDINGS : There is a 5 mm thick subdural hematoma in the midline left posterior falx and left tentorium. There is also likely some subarachnoid hemorrhage. No evidence of herniation. There are periventricular white matter changes consistent with chronic microvascular ischemic disease. There is sulcal widening and ventricular enlargement consistent with cerebral atrophy. There is normal curtis-white differentiation, without CT evidence of acute ischemia or infarct. The skull base and calvarium are unremarkable. The orbits are unremarkable. The paranasal sinuses are clear. The mastoid air cells are well-aerated. The soft tissues are unremarkable. CT/Brain/Head without Contrast IMPRESSION: 5 mm thick subdural hematoma in the midline left posterior falx and left tentorium. There is also likely some subarachnoid hemorrhage. Chronic involutional and ischemic changes of the brain. Electronically Signed: Darion Brennan MD at 19:48 EST ,
[2024-03-08] MEDS: Lidocaine/Epi/Tetracaine 50 ML 1 APPLIC TOPICAL (19:44)
[2024-03-08 20:30] VITALS: BP 124/69; PULSE 75; RESP 19; O2SAT 97
--- NOTE | 2024-03-08 20:31 | PCM.HP.STD ---
[facility] - General General Date of Admission: 03/08/24 Date of Service: 03/08/24 Chief Complaint: Fall with AMS. HPI Werner CHAND, is a 84 M with a past medical history of essential hypertension; on losartan, metoprolol and furosemide, hypothyroidism; on levothyroxine, DM-2; of unknown control not on pharmacologic treatment, CAD; s/p RCA stents (2020) on BASA and Plavix, history of MGUS, ED; on prn sildenafil, essential tremor, SILVIA, history of moderate thrombocytopenia; with platelet count of 158K (11/2023), history of sensorineural hearing loss, history of liver biopsy, depression with anxiety; on citalopram, history of cataract; s/p extraction, history of hemorrhoidectomy, OA and recent history of encephalopathy that has progressively worsened with increasing debility with patient actively in the process of being set up with outpatient hospice who presents to [facility] ER complaining of fall with altered mental status. Mr. Chand reports his symptoms began after he fell this evening while trying to get up after using the bathroom and hit the crown of his head on the corner of a wall near the toilet - with his informing the ER physician that he has had several falls like this in the past. He was immediately noted to have a bloody nose but there were no other significant injuries or LOC with his fall - but he was noted to be confused. His family was also in the process of moving the patient and his into [facility] and when they cam back to finally bring him they found him on the bathroom floor awake with blood all over him from his scalp laceration. There was no report of associated fever, chills, nausea, vomiting, diarrhea, constipation, chest pain, SOB, headache, paresthesias or focal neurologic deficits. In the ER underwent a CT scan of the brain that revealed a ~5 mm thick SDH in the midline Left posterior falx and Left tentorium with some likely SAH with chronic involutional and ischemic changes of the brain with neurologist recommending prophylactic Keppra 1g IV BID for seizure prophylaxis because of the SAH and his family refusing transfer to tertiary care center in favor of hospice with patient made DNR without intubation or aggressive treatment and he was then admitted to the general medical floor with the Palliative Care order set for a stay that is expected to extend beyond 2 midnights with hospice personnel asked to see patient urgently this admission with help appreciated in advance. [facility] Medical History Left groin pain Atherosclerotic heart disease of [place] coronary artery without angina pectoris Type 2 diabetes mellitus Hyperlipidemia Essential tremor SNHL (sensorineural hearing loss) Anxiety Erectile dysfunction Abnormal cardiac CT angiography Essential (primary) hypertension MGUS (monoclonal gammopathy of unknown significance) Leukopenia Thrombocytopenia Home Medications ?Medication ?Instructions ?Recorded ?Last Taken ?Type aspirin 81 mg tablet,delayed 81 mg PO DAILY 09/19/19 01/30/21 History release metoprolol tartrate 25 mg tablet 12.5 mg PO BID 07/16/21 Unknown History clopidogrel 75 mg tablet 75 mg PO DAILY #90 tabs 09/03/22 10/12/23 Rx levothyroxine 50 mcg tablet 50 mcg PO DAILY 04/04/23 Unknown History cholecalciferol (vitamin D3) 50 4,000 unit PO DAILY 08/19/23 Unknown History mcg (2,000 unit) capsule losartan 50 mg tablet 50 mg PO QDAY 08/19/23 Unknown History polysaccharide iron complex 150 mg 150 mg PO DAILY 90 days #90 caps 10/27/23 Unknown Rx iron capsule (Ferrex) citalopram 10 mg tablet 5 mg PO DAILY 03/08/24 Unknown History furosemide 20 mg tablet 20 mg PO DAILY 03/08/24 Unknown History lactulose 10 gram/15 mL oral 15 ml PO TID 03/08/24 Unknown History solution (Constulose) Allergy/AdvReac Type Severity Reaction Status Date / Time No Known Allergies Allergy Verified 12/01/23 10:05 Family History Mother Alzheimer disease Father Myocardial infarction [place] in his 30's Brother CAD (coronary artery disease) CABG Other Sudden cardiac Surgical History History of liver biopsy History of coronary artery stent placement (02/02/21) History of left heart catheterization (01/30/21) History of hemorrhoidectomy History of cataract extraction Social History Smoking Status: Never smoker alcohol intake: current alcohol intake frequency: holidays/special occasions only substance use type: does not use caffeine: Yes Type: coffee Number of servings: 1 ROS ROS Narrative Review of Systems: Constitutional: Patient denies fever or chills. Eyes: Patient denies changes in vision or discharge from eyes. ENT: Patient admits to epistaxis but he denies sore throat or ear pain. Resp: Patient denies SOB or cough. CV: Patient denies chest pain, palpitations or heart racing. GI: Patient denies abdominal pain, nausea, vomiting, diarrhea or constipation. : Patient denies dysuria or hematuria. MSK: Patient denies arthralgias or myalgias. Skin: Patient admit to scalp laceration after fall but he denies rash, abscess or jaundice. Psych: Patient denies symptoms of uncontrolled depression or anxiety. Neuro: Patient was noted to be confused after fall but he denies headache, paresthesias or focal neurologic deficits. Allergy: Patient denies lip swelling, tongue swelling or urticaria. Hematology: Patient admits to bleeding from his scalp wound. Endocrinology: Patient denies polyuria, polydipsia or polyphagia. 14 point ROS otherwise negative except for positives noted above in HPI. Vital Signs Vital Signs Vital Signs: 03/08/24 18:31 03/08/24 18:33 Temperature 97.7 F L Temperature Source Oral Pulse Rate 73 Respiratory Rate 15 Respiratory Effort Normal Non-Labored Respiratory Depth Normal Respiratory Pattern Normal Blood Pressure 124/62 H Blood Pressure Mean 82 Pulse Ox 99 96 Oxygen Delivery Method Room Air Room Air Weight Weight: 143 lb 11.862 oz Body Mass Index (BMI) 24.6 Physical Exam Const alert, oriented x3, no apparent distress and average body habitus Constitutional Narrative: Patient has a chronically ill appearance but is alert, appropriate and denying complaints. General Appearance: cooperative HEENT normocephalic, hearing grossly normal bilaterally and moist oral mucous membranes HEENT Narrative: Patient has an ~1.5 cm laceration over the scalp with blood in both nares and ecchymoses at nasal bridge. Eyes PERRL and EOMs intact bilaterally Neck no lymphadenopathy and supple Resp normal respiratory effort, no retractions, no use of accessory muscles and clear to auscultation bilaterally Cardio regular rate and regular rhythm GI normal to inspection, nondistended, normoactive bowel sounds, soft to palpation, non-tender and non-distended Extremity normal to inspection, full ROM and no clubbing, cyanosis or edema Skin Skin Narrative: Patient has an ~1.5 cm on top of his head. Neuro CN's II-XII intact bilaterally, moves all extremities and no focal motor deficits Neuro Narrative: Mild confusion noted. Sensorium / Orientation: awake, alert, oriented to person, oriented to place and oriented to time Speech: speech normal Psych affect normal Results Medical Records Data Attestation: I reviewed the patient's medical records Lab / Micro Data Attestation: I reviewed the patient's lab results. 03/08/24 20:34 03/08/24 20:34 Imaging Radiology Impression Brain CT 03/08/24 19:22 IMPRESSION: 5 mm thick subdural hematoma in the midline left posterior falx and left tentorium. There is also likely some subarachnoid hemorrhage. Chronic involutional and ischemic changes of the brain. Electronically Signed: Darion Brennan MD at 19:48 EST , Assessment & Plan Assessment/Plan (1) Fall: QUALIFIERS: Encounter type: initial encounter Qualified Code(s): W19.XXXA - Unspecified fall, initial encounter (2) Traumatic subdural hematoma (SDH): QUALIFIERS: Encounter type: initial encounter Loss of consciousness presence/duration: without LOC Qualified Code(s): S06.5X0A - Traumatic subdural hemorrhage without loss of consciousness, initial encounter (3) Traumatic subarachnoid hemorrhage: QUALIFIERS: Encounter type: initial encounter Loss of consciousness presence/duration: without LOC Qualified Code(s): S06.6X0A - Traumatic subarachnoid hemorrhage without loss of consciousness, initial encounter (4) Laceration of scalp: QUALIFIERS: Encounter type: initial encounter Qualified Code(s): S01.01XA - Laceration without foreign body of scalp, initial encounter (5) History of coronary artery stent placement: (6) Metabolic encephalopathy: (7) MGUS (monoclonal gammopathy of unknown significance): PLAN: Plan 1. Fall at Home with Scalp Laceration and CT scan of the brain that revealed a ~5 mm thick SDH in the midline Left posterior falx and Left tentorium with some likely SAH with chronic involutional and ischemic changes of the brain with neurologist recommending prophylactic Keppra 1g IV BID for seizure prophylaxis because of the SAH and his family refusing transfer to tertiary care center in favor of hospice with patient made DNR without intubation or aggressive treatment - Admit to general medical floor for treatment under the palliative care protocol. Continue Keppra 1g IV BID for seizure prophylaxis and obtain 2nd head CT in AM as per neurologist's recommendations. 2. CAD; s/p stent (2020) on BASA and Plavix with antiplatelet therapy exacerbating #1 - Stop BASA and Plavix as the risks outweigh any potential benefits. 3. Chronic Metabolic Encephalopathy with worsening Debility causing patient to request hospice prior to tonight's fall complicating #1 - Hospice to see patient soon. Otherwise, continue supportive care as outlined above. 4. History of MGUS - Noted. 5. Essential hypertension; on losartan, metoprolol and furosemide - Continue home regimen. 6. Hypothyroidism; on levothyroxine - Resume levothyroxine as before. 7. DM-2; of unknown control not on pharmacologic treatment - Give regular diet. We will not be checking blood glucose with patient transferring to hospice. 8. ED; on prn sildenafil- Noted. 9. Essential tremor - Noted. 10. SILVIA - Stable with hemoglobin of 8.9 g/dL present on admission. 11. History of moderate thrombocytopenia; with platelet count of 158K (11/2023) - Stable with platelet count of 114K present on admission. 12. History of sensorineural hearing loss - Noted. 13. History of liver biopsy - Noted. 14. Depression with anxiety; on citalopram - Maintain current regimen. 15. History of cataract; s/p extraction - Noted. 16. History of hemorrhoidectomy - Noted. 17. OA - Stable. Give Tylenol prn. 18. DVT prophylaxis - SCD's only in light of #1. Total time: Approximately (but not less than) 75 minutes. Charges/Coding Visit Charges Inpatient E&M: 97587 Init Hosp L3
--- NOTE | 2024-03-08 20:37 | ED.RN ---
[facility] notified and will be in tomorrow to access patient. Dr. Miller and family notified.
[2024-03-08] MEDS: levETIRAcetam IV 1,000 MG/100 ML BAG 400 MG IV (20:39)
[2024-03-08 20:41] LABS: Absolute Lymphocyte Count 0.64 X10^3/uL (0.83-4.51); Absolute Neutrophil Count 3.1 X10^3/uL (2.0-7.7); Basophil# 0.04 X10^3/uL; Basophil% 0.9 % (0-1); Eosinophil# 0.21 X10^3/uL; Eosinophils% 4.6 % (0-5); Hemoglobin 8.9 g/dL (13.0-16.5); Lymphocyte # 0.64 X10^3/ul (0.83-4.51); Lymphocyte % 14.1 % (19-41); Mean Corp Hgb Conc 31.8 g/dL (32-36); Mean Corpuscular Hgb 30.8 pg (27.0-32.0); Mean Corpuscular Volume 96.9 fL (80-94); Mean Platelet Vol. 9.4 fl (6.2-12.0); Monocyte# 0.54 X10^3/uL; Monocyte% 11.9 % (0-10); NRBC Flagged by Analyzer 0 % (0-5); Neutrophil # 3.08 X10^3/uL (2.7-7.7); Neutrophil % 68.1 % (47-70); POSITIVE MORPHOLOGY YES; Platelet Count 114 K/mm3 (150-450); RBC Distribution Width CV 18.6 % (11.6-14.6); RBC Distribution Width SD 66.5 fl (35.1-43.9); Red Blood Count 2.89 M/mm3 (4.6-6.2); White Blood Count 4.5 K/mm3 (4.4-11.0)
[2024-03-08 20:44] VITALS: BP 124/69; PULSE 77; RESP 16; TEMP 36.8; O2SAT 100
[2024-03-08 20:46] LABS: Differential Indicated SCAN CRITERIA MET
[2024-03-08 20:54] LABS: Anion Gap 6 (5-15); BUN 28 mg/dL (7-18); BUN/Creat Ratio 26.9 RATIO (10-20); Calcium,Total 9.2 mg/dL (8.5-10.1); Chloride 108 mmol/L (98-107); Creatinine, Serum 1.04 mg/dL (0.70-1.30); EST Glomerular Filtration Rate 72 mL/min (>60); Est Glom Filt Rate - Afr Amer 87 mL/min (>60); Estimated Creatinine Clearance 43.48 ml/min; Glucose 127 mg/dL (74-106); Potassium 3.7 mmol/L (3.5-5.1); Sodium Level 139 mmol/L (136-145)
[2024-03-08] MEDS: Ondansetron 4 MG/2 ML Vial IV (21:04)
[2024-03-08 21:40] VITALS: BMI 22.4
[2024-03-08 21:47] LABS: Anisocytosis 1+; Differential Comment SCANNED; Microcytosis RARE; Polychromasia RARE; Stomatocyte RARE
[2024-03-08 21:48] VITALS: BP 119/67; PULSE 66; RESP 17; TEMP 36.4; O2SAT 100
[2024-03-08 21:48] LABS: Ovalocyte RARE; Target Cells RARE
[2024-03-09 03:30] VITALS: BP 67/36; PULSE 68; RESP 16; TEMP 36.6; O2SAT 95
[2024-03-09] MEDS: 0.9% Normal Saline (1000mL) 1,000 ML 999 ML IV (03:40)
[2024-03-09 04:47] VITALS: BP 80/49; PULSE 71; RESP 16; TEMP 37.1; O2SAT 94
[2024-03-09 05:31] VITALS: BP 95/58; PULSE 79; RESP 18; TEMP 37.1; O2SAT 94
--- NOTE | 2024-03-09 07:00 | CT_ITS ---
STUDY: CT BRAIN WITHOUT CONTRAST REASON FOR EXAM: Male, 84 years old patient with subdural hematoma (SDH) and suspected subarachnoid hemorrhage (SAH). RADIATION DOSAGE (If Supplied By Facility): CTDIvol = ( 44.99 ) mGy, DLP = ( 745.49 ) mGycm TECHNIQUE: Transaxial CT imaging of the brain was performed without administration of intravenous contrast material. Individualized dose optimization techniques were used for this CT. COMPARISON: CT of the head dated March 08, 2024. FINDINGS: There is a right paramedian forehead and frontal scalp contusion. There are surgical skin cristian present overlying high left paramedian frontal scalp. Normal calvarium. There is a left-sided mastoid effusion. There is mild cerebral atrophy with widening of the extra-axial spaces and ventricular dilatation. There are areas of decreased attenuation within the white matter tracts of the supratentorial brain, consistent with microvascular disease changes. Normal basal ganglia and thalami. Normal brainstem. There is mild cerebellar atrophy. There is subdural hematoma adjacent to left tentorium measuring approximately 7.7 mm. This appears similar to previous CT. There may be minimal parafalcine subdural hemorrhage as well. There also is a left parietal subdural hygroma that measures approximately 8.4 mm. This is unchanged since the previous CT as well. There is moderately severe atherosclerotic calcification of the intracranial arteries. Normal visualized paranasal sinuses. CT/Brain/Head without Contrast IMPRESSION: 1. Unchanged appearance to the parafalcine and left paramedian tentorial subdural hematomas. 2. Unchanged appearance to left parietal subdural hygroma. Electronically Signed: Belgica Garcia MD at 7:44 EST ,
--- NOTE | 2024-03-09 07:26 | PCM.PN.HOSP ---
Reason for Visit Reason for Visit: Diagnoses Monoclonal gammopathy (03/08/24) Metabolic encephalopathy (03/08/24) Laceration without foreign body of scalp, initial encounter (03/08/24) Traumatic subdural hemorrhage without loss of consciousness, initial encounter (03/08/24) Traumatic subdural hemorrhage with loss of consciousness status unknown, initial encounter (03/08/24) Traumatic subarachnoid hemorrhage without loss of consciousness, initial encounter (03/08/24) Traumatic subarachnoid hemorrhage with loss of consciousness status unknown, initial encounter (03/08/24) Unspecified fall, initial encounter (03/08/24) Presence of coronary angioplasty implant and graft (03/08/24) Objective Data Objective Data Vital Signs: Vital Signs Temp Pulse Resp BP Pulse Ox O2 Del Method 98.8 F 79 18 95/58 L 94 Room Air 03/09/24 05:31 03/09/24 05:31 03/09/24 05:31 03/09/24 05:31 03/09/24 05:31 03/09/24 05:31 Oxygen Delivery Method Room Air Weight: 135 lb 2.294 oz Body Mass Index (BMI) 22.4 Intake & Output: Intake and Output for Last 24 Hours 03/07/24 03/08/24 03/09/24 23:59 23:59 23:59 Intake Total 100 / 100 1000 / 1000 Balance 100 / 100 1000 / 1000 Lab / Micro Data 03/08/24 20:34 03/08/24 20:34 Labs: Laboratory Results - last 24 hr 03/08/24 20:34: WBC 4.5, RBC 2.89 L, Hgb 8.9 L, Hct 28.0 L, MCV 96.9 H, MCH 30.8, MCHC 31.8 L, RDW Std Deviation 66.5 H, RDW Coeff of Brit 18.6 H, Plt Count 114 L, MPV 9.4, Immature Gran % (Auto) 0.400, Neut % (Auto) 68.1, Lymph % (Auto) 14.1 L, [place] % (Auto) 11.9 H, Eos % (Auto) 4.6, Baso % (Auto) 0.9, Absolute Neuts (auto) 3.1, Absolute Lymphs (auto) 0.64 L, Nucleated RBC % 0, Differential Comment SCANNED, Polychromasia RARE, Anisocytosis 1+, Microcytosis RARE, Target Cells RARE, Ovalocytes RARE, Stomatocytes RARE, Sodium 139, Potassium 3.7, Chloride 108 H, Carbon Dioxide 26.0, Anion Gap 6, BUN 28 H, Creatinine 1.04, Estim Creat Clear Calc 43.48, Est GFR (MDRD) Af Amer 87, Est GFR (MDRD) Non-Af 72, BUN/Creatinine Ratio 26.9 H, Glucose 127 H, Hemoglobin A1c 5.0, Calcium 9.2, Folate 5.10, TSH 4.320 H Radiography Diagnostic Testing: Radiology Impression Brain CT 03/08/24 19:22 IMPRESSION: 5 mm thick subdural hematoma in the midline left posterior falx and left tentorium. There is also likely some subarachnoid hemorrhage. Chronic involutional and ischemic changes of the brain. Electronically Signed: Darion Brennan MD at 19:48 EST , ADDENDUM: 03/08/242133 IMPRESSION: 5 mm thick subdural hematoma in the midline left posterior falx and left tentorium. There is also likely some subarachnoid hemorrhage. Chronic involutional and ischemic changes of the brain. N.B. : Maggy Crowell RN, confirmed on 03/08/2024 21:27:31 (ET) that the healthcare facility has received the radiology report. Electronically Signed: Darion Brennan MD at 19:48 EST , Physical Exam Narrative Seen and examined. Patient was admitted with fall. Does not remember exact events at seems patient has dementia. Has bruise on the right lower back and lumbar region. Patient for hospice care Physical exam General: Awake, orientation cannot be ascertained. Cooperative HEENT: Atraumatic, PERRLA, EOMI, Normocephalic Oral: Oral mucosa dry. Neck: Supple, No JVD, Negative Carotid Bruits Chest wall/Lungs: Air entry diminished in bilateral lung bases. No crepitation/rhonchi Cardiovascular: Low BP. Regular rate, Regular Rhythm, No M/G/R Abdomen: Bowel Sounds Present, Soft, Non Tender, Non-Distended : No dysuria. No renal angle tenderness. No suprapubic tenderness. Extremities: No edema, Capillary Refill Less than 3 Seconds Skin: Ecchymosis/bruise over right half of lower back and buttock region. Musculoskeletal: No Tenderness to Palpation of Joints or Extremities. Mild tenderness on the lower back. Neurological: Does not follow commands. DTR 2+. Muscle strength 3+/5 at knees and hips. Detailed neuroexam unobtainable Psych/Mental Status: Flat affect dementia. Assessment & Plan Assessment/Plan (1) Fall: QUALIFIERS: Encounter type: initial encounter Qualified Code(s): W19.XXXA - Unspecified fall, initial encounter (2) Traumatic subdural hematoma (SDH): QUALIFIERS: Encounter type: initial encounter Loss of consciousness presence/duration: without LOC Qualified Code(s): S06.5X0A - Traumatic subdural hemorrhage without loss of consciousness, initial encounter (3) Traumatic subarachnoid hemorrhage: QUALIFIERS: Encounter type: initial encounter Loss of consciousness presence/duration: without LOC Qualified Code(s): S06.6X0A - Traumatic subarachnoid hemorrhage without loss of consciousness, initial encounter (4) Laceration of scalp: QUALIFIERS: Encounter type: initial encounter Qualified Code(s): S01.01XA - Laceration without foreign body of scalp, initial encounter (5) History of coronary artery stent placement: (6) Metabolic encephalopathy: (7) MGUS (monoclonal gammopathy of unknown significance): PLAN: Plan 84-year-old gentleman was admitted with 1 witnessed fall in the bathroom at home on the night of admission. He hit the top of his head with bloody nose. He has chronic gait instability and generalized weakness. 1. Fall at Home with Scalp Laceration and subdural hematoma and subarachnoid hemorrhage: Patient is being admitted on [facility] as hospice patient. CT scan of the brain that revealed a ~5 mm thick SDH in the midline Left posterior falx and Left tentorium with some likely SAH with chronic involutional and ischemic changes of the brain. Family refused for tertiary care transfer as patient is DNR with hospice care. On Keppra 1 g twice daily for seizure prophylaxis as recommended by the neurologist. Hospice is consulted. Probably patient will go today 2. CAD; s/p stent (2020) on BASA and Plavix with antiplatelet therapy - Stop BASA and Plavix as the risks outweigh any potential benefits. 3. Chronic Metabolic Encephalopathy with worsening Debility causing patient to request hospice prior to tonight's fall - Hospice to see patient soon. Probably [facility] 4. History of MGUS - Noted. 5. Essential hypertension; on losartan, metoprolol and furosemide - Continue home regimen. 6. Hypothyroidism; on levothyroxine - Resume levothyroxine as before. 7. DM-2; of unknown control not on pharmacologic treatment - Give regular diet. We will not be checking blood glucose with patient transferring to hospice. 8. ED; on prn sildenafil- Noted. 9. Essential tremor - Noted. 10. SILVIA - Stable with hemoglobin of 8.9 g/dL present on admission. 11. History of moderate thrombocytopenia; with platelet count of 158K (11/2023) - Stable with platelet count of 114K present on admission. 18. DVT prophylaxis - SCD's. Pharmacological prophylaxis contraindicated. . Charges/Coding Visit Charges Inpatient E&M: 20259 Subs Hosp L2
[2024-03-09 09:14] LABS: Vitamin B12 917 pg/mL (211-911)
[2024-03-09 10:00] VITALS: BP 94/52; PULSE 71; RESP 15; TEMP 36.9; O2SAT 93
--- NOTE | 2024-03-09 10:22 | CASEMGMT ---
FLORY DARBY Assessment Face to Face with patient for initial transition planning/care coordination assessment. Pt is currently A&Ox1 to self only. TC to pt , Essence, at this time who states willingness to answer this FLORY DARBY questions for assessment. Care providers, pharmacy, and demographics verified. Admitting dx: SDH after Fall LACE Strata: 2 PCP: Misa Almonte Specialists: Liver specialist through the [facility] (Unsure of name) Preferred Pharmacy: [facility] Insurance: [place] [facility] Prescription Benefit: Yes LNOK: Essence (W), Karlene Herr (SDAU) Living Arrangements: Prior to admission, the pt and pt were in the process of moving to [facility]. Pt states that they plan to go to [place] from [facility] after DC ADLs/IADLs: Pt requires assistance. Pt states that the pt was originally going to go [facility] the [facility] on Hospice. See below Transportation: Pt DME: [facility] with sufficient supplies, [facility], [facility] HHC/SNF: Denies history Plan: Anticipate DC to [place] on Hospice. Pt states that Hospice is meeting with the pt and pt today between 11 and 1130am. MS3 FLORY DARBY and SW aware. Pt denies further questions or concerns at this time. Care Management to continue to follow. Jason Garcia RN, CM
--- NOTE | 2024-03-09 13:04 | CASEMGMT ---
Addendum entered by Sandy Hart 03/09/24 16:01: Social Work- Family met with hospice. Plan is to d/c to [facility]. Physician updated. RAPHAEL Thompson Original Note: Social Work- Pt family reports hospice meeting at 13:30 at hospital today. SW remains available to follow for any discharge planning needs. RAPHAEL Thompson
[2024-03-09] MEDS: levETIRAcetam IV 1,000 MG/100 ML BAG 400 MG IV (14:51)
--- NOTE | 2024-03-09 16:45 | NURSING ---
report called and given to Maria L at hospice, pt to be picked up at [id number]
--- NOTE | 2024-03-09 18:07 | PCM.DC.SUM ---
Providers Date of Admission: 03/08/24 Date of Discharge: 03/09/24 Primary Care Physician: Dr. Misa Almonte MD Reason For Visit: SDH AFTER FALL WHILE ON BASA & PLAVIX Diagnosis Discharge Diagnosis (1) Fall: Status: Acute Code(s): W19.XXXA - Unspecified fall, initial encounter Qualifiers: Encounter type: initial encounter Qualified Code(s): W19.XXXA - Unspecified fall, initial encounter (2) Traumatic subdural hematoma (SDH): Status: Acute Code(s): S06.5XAA - Traumatic subdural hemorrhage with loss of consciousness status unknown, initial encounter Qualifiers: Encounter type: initial encounter Loss of consciousness presence/duration: without LOC Qualified Code(s): S06.5X0A - Traumatic subdural hemorrhage without loss of consciousness, initial encounter (3) Traumatic subarachnoid hemorrhage: Status: Acute Code(s): S06.6XAA - Traumatic subarachnoid hemorrhage with loss of consciousness status unknown, initial encounter Qualifiers: Encounter type: initial encounter Loss of consciousness presence/duration: without LOC Qualified Code(s): S06.6X0A - Traumatic subarachnoid hemorrhage without loss of consciousness, initial encounter (4) Laceration of scalp: Status: Acute Code(s): S01.01XA - Laceration without foreign body of scalp, initial encounter Qualifiers: Encounter type: initial encounter Qualified Code(s): S01.01XA - Laceration without foreign body of scalp, initial encounter (5) History of coronary artery stent placement: Status: Acute Code(s): Z95.5 - Presence of coronary angioplasty implant and graft (6) Metabolic encephalopathy: Status: Acute Code(s): G93.41 - Metabolic encephalopathy (7) MGUS (monoclonal gammopathy of unknown significance): Status: Chronic Code(s): D47.2 - Monoclonal gammopathy Plan 84-year-old gentleman was admitted with 1 witnessed fall in the bathroom at home on the night of admission. He hit the top of his head with bloody nose. He has chronic gait instability and generalized weakness. 1. Fall at Home with Scalp Laceration and subdural hematoma and subarachnoid hemorrhage: Patient is being admitted on [facility] as hospice patient. CT scan of the brain that revealed a ~5 mm thick SDH in the midline Left posterior falx and Left tentorium with some likely SAH with chronic involutional and ischemic changes of the brain. Family refused for tertiary care transfer as patient is DNR with hospice care. On Keppra 1 g twice daily for seizure prophylaxis as recommended by the neurologist. Hospice is consulted. 03/10: Patient was discharged to inpatient unit hospice late in the evening. 2. CAD; s/p stent (2020) on BASA and Plavix with antiplatelet therapy - Stop BASA and Plavix as the risks outweigh any potential benefits. 3. Chronic Metabolic Encephalopathy with worsening Debility causing patient to request hospice prior to tonight's fall - Hospice to see patient soon. Probably [facility] 4. History of MGUS - Noted. 5. Essential hypertension; on losartan, metoprolol and furosemide - Continue home regimen. 6. Hypothyroidism; on levothyroxine - Resume levothyroxine as before. 7. DM-2; of unknown control not on pharmacologic treatment - Give regular diet. We will not be checking blood glucose with patient transferring to hospice. 8. ED; on prn sildenafil- Noted. 9. Essential tremor - Noted. 10. SILVIA - Stable with hemoglobin of 8.9 g/dL present on admission. 11. History of moderate thrombocytopenia; with platelet count of 158K (11/2023) - Stable with platelet count of 114K present on admission. 18. DVT prophylaxis - SCD's. Pharmacological prophylaxis contraindicated. Medications at Discharge Home Medications aspirin 81 mg tablet,delayed release 81 mg PO DAILY 09/19/19 metoprolol tartrate 25 mg tablet 12.5 mg PO BID 07/16/21 clopidogrel 75 mg tablet 75 mg PO DAILY #90 tabs 09/03/22 levothyroxine 50 mcg tablet 50 mcg PO DAILY 04/04/23 cholecalciferol (vitamin D3) 50 mcg (2,000 unit) capsule 4,000 unit PO DAILY 08/19/23 losartan 50 mg tablet 50 mg PO QDAY 08/19/23 polysaccharide iron complex 150 mg iron capsule (Ferrex) 150 mg PO DAILY 90 days #90 caps 10/27/23 citalopram 10 mg tablet 5 mg PO DAILY 03/08/24 furosemide 20 mg tablet 20 mg PO DAILY 03/08/24 lactulose 10 gram/15 mL oral solution (Constulose) 15 ml PO TID 03/08/24 Physical Exam Narrative Patient was seen and examined in the morning. Weight / BMI Weight Weight: 135 lb 2.294 oz Body Mass Index (BMI) 22.4 ABG / Lab / Microbiology Data 03/08/24 20:34 03/08/24 20:34 D/C Instructions DC O2, CPAP, BIPAP Needs Home O2 Discharge instructions: No Meaningful Use Info Meaningful Use Meaningful Use Diagnoses (Choose all that apply): None applicable Ischemic Stroke Statin Dosing Therapy Reference: STATIN DOSE THERAPY REFERENCE: * Patients > 75 years receive moderate or high dose statin therapy. * Patients 75 years or YOUNGER should receive HIGH intensity statin dose unless contraindicated. You will be required to document reason for non-treatment if statin daily dose does not meet guidelines. HIGH DOSE STATIN THERAPY DAILY Atorvastatin > than or = to 40 mg Rosuvastatin > than or = to 20 mg Amlodipine + Atorvastatin > than or = to 2.5/40 mg Ezetimibe + Simvastatin 10/80 mg Simvastatin 80mg Discharge Plan Admission Admit Date/Time: 03/08/24 20:33 Attending Provider: Edu Walls Primary Care Provider: Misa Almonte Consulting Providers: Gael Mckenzie Discharge Orders/Prescriptions Prescriptions: No Action metoprolol tartrate 25 mg tablet 12.5 mg PO BID clopidogrel 75 mg tablet 75 mg PO DAILY Qty: 90 3RF losartan 50 mg tablet 50 mg PO QDAY levothyroxine 50 mcg tablet 50 mcg PO DAILY polysaccharide iron complex [Ferrex 150] 150 mg iron capsule 150 mg PO DAILY 90 Days Qty: 90 3RF aspirin 81 MG tablet,delayed release (DR/EC) 81 mg PO DAILY cholecalciferol (vitamin D3) 50 mcg (2,000 unit) capsule 4,000 unit PO DAILY furosemide 20 mg tablet 20 mg PO DAILY citalopram 10 mg tablet 5 mg PO DAILY lactulose [Constulose] 10 gram/15 mL solution 15 ml PO TID Referrals / Follow Up: Misa Almonte MD [Primary Care Provider] - Disposition Disposition (needs filled in before D/C Order can be placed): Hospice in Medical Facility Charges/Coding Visit Charges Inpatient E&M: 21761 Disch Hosp >30min
== END 2024-03-09 16:45 | disposition hospice, inpatient (51) | DRG 85 ==
LOC: ED 19:30 → MS3 21:13
PROVIDERS: Admitting Provider Internal Medicine; Emergency Provider Emergency Medicine; PCP Internal Medicine; Referring Provider Emergency Medicine; Visit Provider Internal Medicine
DX: S06.5X0A Traumatic subdural hemorrhage without loss of consciousness, initial encounter (principal); G93.41 Metabolic encephalopathy; Z66 Do not resuscitate; E11.9 Type 2 diabetes mellitus without complications; I10 Essential (primary) hypertension; E03.9 Hypothyroidism, unspecified; F32.A Depression, unspecified; D47.2 Monoclonal gammopathy; E78.5 Hyperlipidemia, unspecified; I25.10 Atherosclerotic heart disease of native coronary artery without angina pectoris; S01.01XA Laceration without foreign body of scalp, initial encounter; S06.6X0A Traumatic subarachnoid hemorrhage without loss of consciousness, initial encounter; W18.39XA Other fall on same level, initial encounter; F41.9 Anxiety disorder, unspecified; R29.6 Repeated falls; Z95.5 Presence of coronary angioplasty implant and graft; Z79.02 Long term (current) use of antithrombotics/antiplatelets; Z79.82 Long term (current) use of aspirin; Z79.890 Hormone replacement therapy; Z79.899 Other long term (current) drug therapy
CPT/HCPCS: 36415; 70450; 80048; 82607; 82746; 83036; 84443; 85025; 99285; A4216; J2405